=== PATIENT | female | born 1995 | race Caucasian/White ===

== ENCOUNTER → 2020-08-09 16:04 | Outpatient (CLI) | payer OTHER, SELFPAY ==
[2019-04-22 14:47] VITALS: BMI 26.1
[2020-08-15 16:56] LABS: HPV Reflexed? NOT INDICATED
== END ==
PROVIDERS: PCP Physician Assistant; Visit Provider Obstetrics & Gynecology
DX: Z12.4 Encounter for screening for malignant neoplasm of cervix (principal)
CPT/HCPCS: 88175; G0145

== ENCOUNTER → 2020-09-22 14:52 | Outpatient (CLI) | payer OTHER, SELFPAY ==
[2019-04-22 14:47] VITALS: BMI 26.1
[2020-09-22 16:06] LABS: Progesterone Level 13.42 ng/mL (See Comment)
[2020-09-22 16:13] LABS: Prolactin 14.5 ng/mL; Thyroid Stim Hormone (TSH) 0.64 uIU/mL (0.358-3.74)
== END ==
PROVIDERS: PCP Physician Assistant; Visit Provider Obstetrics & Gynecology
DX: N92.6 Irregular menstruation, unspecified (principal)
CPT/HCPCS: 36415; 84144; 84146; 84443

== ENCOUNTER 2021-06-21 10:56 | Outpatient (CLI) | payer OTHER, SELFPAY ==
[2021-06-21 11:48] LABS: hCG Titer Quant., Serum 11 mIU/mL (1-3)
== END 2021-06-21 23:59 | disposition home or self-care (01) ==
LOC: WOBLAB 10:59
PROVIDERS: PCP Physician Assistant; Visit Provider Obstetrics & Gynecology
DX: Z34.81 Encounter for supervision of other normal pregnancy, first trimester (principal); N91.2 Amenorrhea, unspecified
CPT/HCPCS: 36415; 84702

== ENCOUNTER 2021-06-25 10:57 | Outpatient (CLI) | payer OTHER, SELFPAY ==
[2021-06-25 13:20] LABS: hCG Titer Quant., Serum 5 mIU/mL (1-3)
== END 2021-06-25 23:59 | disposition home or self-care (01) ==
LOC: WOBLAB 10:58
PROVIDERS: PCP Physician Assistant; Visit Provider Obstetrics & Gynecology
DX: N91.2 Amenorrhea, unspecified (principal)
CPT/HCPCS: 36415; 84702

== ENCOUNTER → 2021-12-20 | Outpatient (CLI) | payer OTHER, SELFPAY ==
[2021-12-20 12:01] LABS: Absolute Lymphocyte Count 1.32 X10^3/uL (0.83-4.51); Absolute Neutrophil Count 3.2 X10^3/uL (2.0-7.7); Basophil# 0.02 X10^3/uL; Basophil% 0.4 % (0-1); Eosinophil# 0.05 X10^3/uL; Hematocrit 42.9 % (37-47); Hemoglobin 14.2 g/dL (12.0-15.0); Lymphocyte # 1.32 X10^3/ul (0.83-4.51); Lymphocyte % 26.1 % (19-41); Mean Corp Hgb Conc 33.1 g/dL (32-36); Mean Corpuscular Hgb 31.1 pg (27.0-32.0); Mean Corpuscular Volume 93.9 fL (81-99); Mean Platelet Vol. 10.8 fl (6.2-12.0); Monocyte# 0.48 X10^3/uL; Monocyte% 9.5 % (0-10); NRBC Flagged by Analyzer 0 % (0-5); Neutrophil # 3.17 X10^3/uL (2.7-7.7); Neutrophil % 62.6 % (47-70); Platelet Count 291 K/mm3 (150-450); RBC Distribution Width CV 11.7 % (11.6-14.6); RBC Distribution Width SD 39.8 fl (35.1-43.9); Red Blood Count 4.57 M/mm3 (4.2-5.4); White Blood Count 5.1 K/mm3 (4.4-11.0)
[2021-12-20 12:10] LABS: Anion Gap 3 (5-15); BUN 9 mg/dL (7-18); BUN/Creat Ratio 10.9 RATIO (10-20); Calcium,Total 9.4 mg/dL (8.5-10.1); Chloride 109 mmol/L (98-107); Creatinine, Serum 0.82 mg/dL (0.55-1.02); EST Glomerular Filtration Rate 89 mL/min (>60); Est Glom Filt Rate - Afr Amer 107 mL/min (>60); Estradiol 28.1 pg/mL; Follicle Stimulating Hormone 6.4 mIU/mL; Glucose 91 mg/dL (74-106); Potassium 3.8 mmol/L (3.5-5.1); Prolactin 12.3 ng/mL; Sodium Level 139 mmol/L (136-145)
[2021-12-20 12:24] LABS: Hemoglobin A1c 5.1 % (3.8-5.6)
[2021-12-27 09:25] LABS: Testosterone Free 3.2 pg/mL (0.0-4.2)
== END | disposition home or self-care (01) ==
LOC: WOBLAB 10:59
PROVIDERS: PCP Physician Assistant; Visit Provider Obstetrics & Gynecology
DX: N97.8 Female infertility of other origin (principal)
CPT/HCPCS: 36415; 80048; 82670; 83001; 83002; 83036; 84146; 84402; 85025

== ENCOUNTER → 2022-02-28 | Outpatient (CLI) | payer SELFPAY ==
[2022-02-28 13:07] LABS: Progesterone Level 2.26 ng/mL (See Comment)
== END | disposition home or self-care (01) ==
LOC: WOBLAB 11:44
PROVIDERS: PCP Physician Assistant; Visit Provider Obstetrics & Gynecology
DX: N97.8 Female infertility of other origin (principal); E28.2 Polycystic ovarian syndrome
CPT/HCPCS: 36415; 84144

== ENCOUNTER → 2022-04-04 | Outpatient (CLI) | payer SELFPAY ==
[2022-04-04 12:06] LABS: Progesterone Level 7.65 ng/mL (See Comment)
== END | disposition home or self-care (01) ==
PROVIDERS: PCP Physician Assistant; Visit Provider Obstetrics & Gynecology
DX: Z51.81 Encounter for therapeutic drug level monitoring (principal)
CPT/HCPCS: 36415; 84144

== ENCOUNTER → 2022-06-06 | Outpatient (CLI) | payer SELFPAY ==
[2022-06-06 13:11] LABS: Absolute Lymphocyte Count 1.29 X10^3/uL (0.83-4.51); Absolute Neutrophil Count 6.4 X10^3/uL (2.0-7.7); Basophil# 0.01 X10^3/uL; Basophil% 0.1 % (0-1); Eosinophil# 0.01 X10^3/uL; Eosinophils% 0.1 % (0-5); Lymphocyte # 1.29 X10^3/ul (0.83-4.51); Lymphocyte % 15.3 % (19-41); Mean Corp Hgb Conc 32.5 g/dL (32-36); Mean Corpuscular Volume 92.4 fL (81-99); Mean Platelet Vol. 11.2 fl (6.2-12.0); Monocyte# 0.68 X10^3/uL; NRBC Flagged by Analyzer 0 % (0-5); Neutrophil # 6.43 X10^3/uL (2.7-7.7); Neutrophil % 76.1 % (47-70); Platelet Count 291 K/mm3 (150-450); RBC Distribution Width CV 11.4 % (11.6-14.6); RBC Distribution Width SD 38.7 fl (35.1-43.9); Red Blood Count 4.33 M/mm3 (4.2-5.4); White Blood Count 8.5 K/mm3 (4.4-11.0)
[2022-06-06 15:10] LABS: HIV - WCH Non-Reactive (Nonreactive); Hepatitis B Surface Antigen Non-Reactive (Nonreactive); Hepatitis C Antibody Non-Reactive (Nonreactive); Rubella IgG Reactive (Nonreactive); Syphilis Antibodies Non-reactive
[2022-06-07 21:24] LABS: V-Zoster IgG (Immunity) 2265 index (Immune >165)
== END | disposition home or self-care (01) ==
PROVIDERS: PCP Physician Assistant; Visit Provider Obstetrics & Gynecology
DX: Z34.81 Encounter for supervision of other normal pregnancy, first trimester (principal)
CPT/HCPCS: 36415; 85025; 86703; 86762; 86780; 86787; 86803; 87086; 87340

== ENCOUNTER → 2022-07-11 | Outpatient (CLI) | payer SELFPAY ==
[2022-07-11 11:21] LABS: Glucose Challenge Gest 1H 50g 100 mg/dL (70-140)
== END | disposition home or self-care (01) ==
LOC: WOBLAB 10:28
PROVIDERS: PCP Physician Assistant; Visit Provider Obstetrics & Gynecology
DX: Z34.81 Encounter for supervision of other normal pregnancy, first trimester (principal)
CPT/HCPCS: 36415; 82950

== ENCOUNTER → 2022-11-07 | Outpatient (CLI) | payer SELFPAY ==
[2022-11-07 16:58] LABS: Absolute Lymphocyte Count 1.33 X10^3/uL (0.83-4.51); Absolute Neutrophil Count 8.9 X10^3/uL (2.0-7.7); Basophil# 0.02 X10^3/uL; Basophil% 0.2 % (0-1); Eosinophil# 0.04 X10^3/uL; Eosinophils% 0.4 % (0-5); Hematocrit 29.7 % (37-47); Hemoglobin 9.4 g/dL (12.0-15.0); Lymphocyte # 1.33 X10^3/ul (0.83-4.51); Lymphocyte % 11.8 % (19-41); Mean Corp Hgb Conc 31.6 g/dL (32-36); Mean Corpuscular Hgb 30.2 pg (27.0-32.0); Mean Corpuscular Volume 95.5 fL (81-99); Mean Platelet Vol. 11.6 fl (6.2-12.0); Monocyte# 0.79 X10^3/uL; NRBC Flagged by Analyzer 0 % (0-5); Neutrophil # 8.94 X10^3/uL (2.7-7.7); Neutrophil % 79.3 % (47-70); Platelet Count 254 K/mm3 (150-450); RBC Distribution Width CV 12.6 % (11.6-14.6); RBC Distribution Width SD 42.9 fl (35.1-43.9); Red Blood Count 3.11 M/mm3 (4.2-5.4); White Blood Count 11.3 K/mm3 (4.4-11.0)
[2022-11-07 17:13] LABS: Glucose Challenge Gest 1H 50g 115 mg/dL (70-140)
[2022-11-07 17:44] LABS: Syphilis Antibodies Non-reactive
== END | disposition home or self-care (01) ==
LOC: WOBLAB 13:22
PROVIDERS: PCP Physician Assistant; Visit Provider Obstetrics & Gynecology
DX: Z34.82 Encounter for supervision of other normal pregnancy, second trimester (principal); Z3A.00 Weeks of gestation of pregnancy not specified
CPT/HCPCS: 36415; 82950; 85025; 86780

== ENCOUNTER 2022-12-12 17:55 | Outpatient (CLI) | payer SELFPAY ==
[2022-12-12] VITALS (18 sets, daily range): BP systolic 122–142; BP diastolic 73–84; PULSE 87–115; TEMP 36.7–37.1; O2SAT 95–97; BMI 34.0
[2022-12-12] MEDS: 0.9% Saline Lock 10 ML Syringe IV (18:43)
--- NOTE | 2022-12-12 19:56 | PCM.HP.BLA ---
History and Physical Date of Admission: 12/12/22 Chief complaint: Preeclampsia without severe features History present illness: 27-year-old G2, P0 at 32 weeks and 5 days with SERGIO 02/01/2023 arrives from office with elevated blood pressures and elevated LFTs. Patient remains asymptomatic. Denies headache, vision change, chest pain, shortness of breath, nausea vomit, right upper quadrant pain. Patient states good movements. is complicated by Di Di twins, preeclampsia without severe features, BMI 34 Obstetric history: G1: SAB G2: Current Past medical history: None Medications: vitamin, aspirin Allergies: Latex Past surgical history: None Social history: Denies smoking, alcohol use, drug use Family history: Denies history DVT or PE Review of systems: Besides above pertinent positives a full review of systems was performed and found to be negative Physical exam: Vitals: Blood pressure 127/75 pulse 97 General: Normal-appearing no acute distress HEENT: Normocephalic/atraumatic no cervical adenopathy Cardiac/respiratory: No use of city assessor muscles, nonlabored breathing Abdomen: Soft, nontender, gravid. Negative right upper quadrant pain Extremities: No peripheral edema normal peripheral pulses. DTRs +2 in the lower extremities bilaterally. Negative clonus bilaterally Psych: Normal affect normal demeanor nonpressured speech BPP in office: 88 x 2 baby A cephalic baby B cephalic Assessment plan: 27-year-old at 32 weeks and 5 days seen in office with elevated blood pressure 140/80s, asymptomatic in office, office labs obtained and noted to have elevated LFTs ALT nearly double the upper limit of normal along with proteinuria. Based on these findings diagnosed with preeclampsia without severe features. Called patient with results and notified to go to labor and delivery for further evaluation. Called charge nurse to notify patient arrival and plan for blood pressure check and IV placement to call with blood pressures. Patient arrived notified by nursing initial elevated blood pressure 142/82 but subsequent pressures within normal limits. Given orders for nursing for every 15 minute blood pressure checks and to place IV saline locked. Patient seen and examined, patient remains asymptomatic and blood pressures remain within normal limits. Educated patient on findings with lab work and risk for preeclampsia with Di Di twins. Educated patient on diagnosis of preeclampsia without severe features and delivery timing and plan. Based on recent elevated blood pressures and elevated LFTs educated patient on giving Celestone now and reasons for Celestone including benefits for lung maturity, patient states understanding and wished to proceed. Discussed with patient monitoring overnight blood pressures and repeating labs in the morning discussed care plan if LFTs continue to elevate double the upper limit of normal. Patient and partner state understanding all questions answered. Will continue to monitor blood pressures and repeat HELLP labs in the morning. Discussed care plan with nursing
[2022-12-12] MEDS: Betamethasone/Betamethasone 30 MG/5 ML Vial 12 MG IM (20:40)
[2022-12-13] VITALS (9 sets, daily range): BP systolic 112–140; BP diastolic 65–78; PULSE 87–103; TEMP 37; O2SAT 97
--- NOTE | 2022-12-13 04:15 | PN.OBGYN_ITS ---
Subjective Subjective No overnight complaints. Denies headache, vision change, chest pain, shortness of breath, nausea vomit, right upper quadrant pain. Objective Data Objective Data Vital Signs: Vital Signs Temp Pulse BP Pulse Ox 98.1 F 97 134/76 H 96 12/12/22 23:55 12/13/22 03:02 12/13/22 03:02 12/12/22 23:55 Weight: 198 lb Body Mass Index (BMI) 34.0 Physical Exam Const alert, oriented x3, no apparent distress, average body habitus, healthy william earing and well nourished HEENT normocephalic and moist oral mucous membranes Eyes PERRL Neck full ROM Resp normal respiratory effort, no retractions and no use of accessory muscles GI GI Narrative: Soft, nontender, gravid. Negative right upper quadrant pain Extremity normal to inspection, full ROM and no clubbing, cyanosis or edema Neuro moves all extremities, no focal motor deficits and deep tendon reflexes 2+ bilaterally Motor Exam: clonus absent Psych mental status grossly normal, affect normal, speech normal and activity/motor behavior normal Assessment & Plan (1) : PLAN: Hospital day 1 after overnight stay. Currently with preeclampsia without severe features. Patient remains asymptomatic. Isolated elevated blood pressures otherwise blood pressure within normal limits. Patient educated on care plan for labs today. Pending lab results will adjust care plan. Celestone given yesterday evening for repeat dose today. For n.p.o. discussed with nursing.
[2022-12-13] MEDS: 0.9% Saline Lock 10 ML Syringe IV (06:16)
[2022-12-13 06:27] LABS: Absolute Lymphocyte Count 0.94 X10^3/uL (0.83-4.51); Absolute Neutrophil Count 9.7 X10^3/uL (2.0-7.7); Basophil# 0.02 X10^3/uL; Basophil% 0.2 % (0-1); Hematocrit 35.5 % (37-47); Hemoglobin 11.2 g/dL (12.0-15.0); Lymphocyte # 0.94 X10^3/ul (0.83-4.51); Lymphocyte % 8.4 % (19-41); Mean Corp Hgb Conc 31.5 g/dL (32-36); Mean Corpuscular Hgb 30.4 pg (27.0-32.0); Mean Corpuscular Volume 96.5 fL (81-99); Mean Platelet Vol. 12.1 fl (6.2-12.0); Monocyte# 0.35 X10^3/uL; Monocyte% 3.1 % (0-10); NRBC Flagged by Analyzer 0 % (0-5); Neutrophil # 9.72 X10^3/uL (2.7-7.7); Neutrophil % 87.4 % (47-70); Platelet Count 197 K/mm3 (150-450); RBC Distribution Width CV 14.6 % (11.6-14.6); RBC Distribution Width SD 51.4 fl (35.1-43.9); Red Blood Count 3.68 M/mm3 (4.2-5.4); White Blood Count 11.1 K/mm3 (4.4-11.0)
[2022-12-13 06:54] LABS: ALB/GLOB Ratio 0.7 RATIO (0.9-2.4); AST(SGOT) 41 U/L (15-37); Alanine Aminotransfer ALT/SGPT 97 U/L (13-56); Albumin, Serum 2.5 g/dL (3.2-5.0); Alkaline Phosphatase 174 U/L (45-117); Anion Gap 8 (5-15); BUN 9 mg/dL (7-18); BUN/Creat Ratio 13.1 RATIO (10-20); Calcium,Total 9.3 mg/dL (8.5-10.1); Chloride 111 mmol/L (98-107); Creatinine, Serum 0.69 mg/dL (0.55-1.02); EST Glomerular Filtration Rate 109 mL/min (>60); Est Glom Filt Rate - Afr Amer 132 mL/min (>60); Estimated Creatinine Clearance 105.76 ml/min; Globulin 3.6 g/dL (2.2-4.2); Glucose 109 mg/dL (74-106); LDH 163 U/L (84-246); Potassium 3.9 mmol/L (3.5-5.1); Protein, Total 6.1 g/dL (6.4-8.2); Sodium Level 139 mmol/L (136-145)
== END 2022-12-13 07:10 | disposition home or self-care (01) ==
LOC: WPOUT 17:57 → WP 17:57
PROVIDERS: PCP Physician Assistant; Referring Provider Obstetrics & Gynecology; Visit Provider Obstetrics & Gynecology
DX: O14.93 Unspecified pre-eclampsia, third trimester (principal); Z3A.32 32 weeks gestation of pregnancy; Z79.82 Long term (current) use of aspirin; O30.003 Twin pregnancy, unspecified number of placenta and unspecified number of amniotic sacs, third trimester
CPT/HCPCS: 36415; 59025; 59050; 80053; 83615; 85025; 96372; A4216; J0702

== ENCOUNTER → 2022-12-12 | Outpatient (CLI) | payer SELFPAY ==
[2022-12-12 15:18] LABS: Absolute Lymphocyte Count 1.32 X10^3/uL (0.83-4.51); Basophil# 0.03 X10^3/uL; Basophil% 0.2 % (0-1); Eosinophil# 0.01 X10^3/uL; Eosinophils% 0.1 % (0-5); Hematocrit 35.9 % (37-47); Hemoglobin 11.7 g/dL (12.0-15.0); Lymphocyte # 1.32 X10^3/ul (0.83-4.51); Lymphocyte % 10.9 % (19-41); Mean Corp Hgb Conc 32.6 g/dL (32-36); Mean Corpuscular Hgb 31.1 pg (27.0-32.0); Mean Corpuscular Volume 95.5 fL (81-99); Mean Platelet Vol. 11.9 fl (6.2-12.0); Monocyte# 0.75 X10^3/uL; Monocyte% 6.2 % (0-10); NRBC Flagged by Analyzer 0 % (0-5); Neutrophil # 9.97 X10^3/uL (2.7-7.7); Neutrophil % 82.1 % (47-70); Platelet Count 212 K/mm3 (150-450); RBC Distribution Width CV 14.6 % (11.6-14.6); RBC Distribution Width SD 50.8 fl (35.1-43.9); Red Blood Count 3.76 M/mm3 (4.2-5.4); White Blood Count 12.1 K/mm3 (4.4-11.0)
[2022-12-12 15:31] LABS: Protein, Urine (Random) 15.2 mg/dL (<11.9); Protein:Creat Ratio 412 mg/g CRE (0-200)
[2022-12-12 15:33] LABS: ALB/GLOB Ratio 0.7 RATIO (0.9-2.4); AST(SGOT) 44 U/L (15-37); Alanine Aminotransfer ALT/SGPT 102 U/L (13-56); Albumin, Serum 2.5 g/dL (3.2-5.0); Alkaline Phosphatase 183 U/L (45-117); Anion Gap 6 (5-15); BUN 7 mg/dL (7-18); BUN/Creat Ratio 8.5 RATIO (10-20); Calcium,Total 9.3 mg/dL (8.5-10.1); Chloride 107 mmol/L (98-107); Creatinine, Serum 0.82 mg/dL (0.55-1.02); EST Glomerular Filtration Rate 88 mL/min (>60); Est Glom Filt Rate - Afr Amer 107 mL/min (>60); Globulin 3.8 g/dL (2.2-4.2); Glucose 91 mg/dL (74-106); LDH 171 U/L (84-246); Potassium 3.6 mmol/L (3.5-5.1); Protein, Total 6.3 g/dL (6.4-8.2); Sodium Level 138 mmol/L (136-145)
== END | disposition home or self-care (01) ==
LOC: WOBLAB 14:28
PROVIDERS: PCP Physician Assistant; Visit Provider Obstetrics & Gynecology
DX: Z34.83 Encounter for supervision of other normal pregnancy, third trimester (principal); Z3A.00 Weeks of gestation of pregnancy not specified
CPT/HCPCS: 36415; 80053; 82570; 83615; 84156; 85025; 87086

== ENCOUNTER 2022-12-13 20:58 | Outpatient (CLI) | payer SELFPAY ==
[2022-12-13 21:15] VITALS: BMI 34.2
--- NOTE | 2022-12-13 21:15 | PCM.PN.BLA ---
Progress Note 27-year-old female with di-/Di twins presenting for Celestone injection. Celestone given. Discharge home with twice weekly visits in office.
[2022-12-13 21:18] VITALS: BP 129/76; PULSE 86; TEMP 36.9
[2022-12-13] MEDS: Betamethasone/Betamethasone 30 MG/5 ML Vial 12 MG IM (21:29)
== END 2022-12-13 21:35 | disposition home or self-care (01) ==
LOC: WPOUT 21:07 → WP 21:08
PROVIDERS: PCP Physician Assistant; Referring Provider Obstetrics & Gynecology; Visit Provider Obstetrics & Gynecology
DX: O30.009 Twin pregnancy, unspecified number of placenta and unspecified number of amniotic sacs, unspecified trimester (principal); Z3A.00 Weeks of gestation of pregnancy not specified
CPT/HCPCS: 96372; 99221; G0378; J0702

== ENCOUNTER → 2022-12-17 | Outpatient (CLI) | payer SELFPAY ==
[2022-12-17 13:21] LABS: Hematocrit 36.1 % (37-47); Hemoglobin 11.2 g/dL (12.0-15.0); Mean Corpuscular Hgb 30.3 pg (27.0-32.0); Mean Corpuscular Volume 97.6 fL (81-99); Mean Platelet Vol. 12.6 fl (6.2-12.0); Platelet Count 205 K/mm3 (150-450); RBC Distribution Width CV 14.6 % (11.6-14.6); RBC Distribution Width SD 52.3 fl (35.1-43.9); White Blood Count 12.1 K/mm3 (4.4-11.0)
[2022-12-17 13:38] LABS: ALB/GLOB Ratio 0.7 RATIO (0.9-2.4); AST(SGOT) 43 U/L (15-37); Alanine Aminotransfer ALT/SGPT 98 U/L (13-56); Albumin, Serum 2.5 g/dL (3.2-5.0); Alkaline Phosphatase 186 U/L (45-117); Anion Gap 7 (5-15); BUN 11 mg/dL (7-18); BUN/Creat Ratio 16.8 RATIO (10-20); Calcium,Total 8.8 mg/dL (8.5-10.1); Chloride 110 mmol/L (98-107); Creatinine, Serum 0.65 mg/dL (0.55-1.02); EST Glomerular Filtration Rate 115 mL/min (>60); Est Glom Filt Rate - Afr Amer 139 mL/min (>60); Globulin 3.6 g/dL (2.2-4.2); Glucose 97 mg/dL (74-106); LDH 195 U/L (84-246); Potassium 3.7 mmol/L (3.5-5.1); Protein, Total 6.1 g/dL (6.4-8.2); Sodium Level 138 mmol/L (136-145)
== END | disposition home or self-care (01) ==
LOC: WOBLAB 12:01
PROVIDERS: PCP Physician Assistant; Visit Provider Student in an Organized Health Care Education/Training Program
DX: O14.93 Unspecified pre-eclampsia, third trimester (principal); Z3A.00 Weeks of gestation of pregnancy not specified
CPT/HCPCS: 36415; 80053; 83615; 85027

== ENCOUNTER → 2022-12-24 | Outpatient (CLI) | payer SELFPAY ==
[2022-12-24 11:10] LABS: Hematocrit 37.5 % (37-47); Mean Corpuscular Hgb 31.1 pg (27.0-32.0); Mean Corpuscular Volume 97.2 fL (81-99); Mean Platelet Vol. 12.5 fl (6.2-12.0); Platelet Count 176 K/mm3 (150-450); RBC Distribution Width CV 15.4 % (11.6-14.6); RBC Distribution Width SD 54.3 fl (35.1-43.9); Red Blood Count 3.86 M/mm3 (4.2-5.4); White Blood Count 9.6 K/mm3 (4.4-11.0)
[2022-12-24 11:21] LABS: ALB/GLOB Ratio 0.7 RATIO (0.9-2.4); AST(SGOT) 35 U/L (15-37); Alanine Aminotransfer ALT/SGPT 79 U/L (13-56); Albumin, Serum 2.6 g/dL (3.2-5.0); Alkaline Phosphatase 204 U/L (45-117); Anion Gap 11 (5-15); BUN 9 mg/dL (7-18); Calcium,Total 9.2 mg/dL (8.5-10.1); Chloride 107 mmol/L (98-107); Creatinine, Serum 0.82 mg/dL (0.55-1.02); EST Glomerular Filtration Rate 89 mL/min (>60); Est Glom Filt Rate - Afr Amer 108 mL/min (>60); Globulin 3.8 g/dL (2.2-4.2); Glucose 75 mg/dL (74-106); LDH 161 U/L (84-246); Potassium 3.6 mmol/L (3.5-5.1); Protein, Total 6.4 g/dL (6.4-8.2); Sodium Level 140 mmol/L (136-145)
== END | disposition home or self-care (01) ==
LOC: WOBLAB 10:10
PROVIDERS: PCP Physician Assistant; Visit Provider Student in an Organized Health Care Education/Training Program
DX: O14.93 Unspecified pre-eclampsia, third trimester (principal); Z36.85 Encounter for antenatal screening for Streptococcus B; Z3A.00 Weeks of gestation of pregnancy not specified
CPT/HCPCS: 36415; 80053; 83615; 85027; 87081

== ENCOUNTER → 2023-01-07 | Outpatient (CLI) | payer SELFPAY ==
[2023-01-07 13:11] LABS: Hematocrit 37.9 % (37-47); Mean Corp Hgb Conc 31.7 g/dL (32-36); Mean Corpuscular Hgb 30.6 pg (27.0-32.0); Mean Corpuscular Volume 96.7 fL (81-99); Mean Platelet Vol. 12.6 fl (6.2-12.0); Platelet Count 173 K/mm3 (150-450); RBC Distribution Width CV 15.2 % (11.6-14.6); RBC Distribution Width SD 53.1 fl (35.1-43.9); Red Blood Count 3.92 M/mm3 (4.2-5.4); White Blood Count 6.9 K/mm3 (4.4-11.0)
[2023-01-07 13:39] LABS: ALB/GLOB Ratio 0.6 RATIO (0.9-2.4); AST(SGOT) 24 U/L (15-37); Alanine Aminotransfer ALT/SGPT 30 U/L (13-56); Albumin, Serum 2.5 g/dL (3.2-5.0); Alkaline Phosphatase 215 U/L (45-117); Anion Gap 6 (5-15); BUN 7 mg/dL (7-18); BUN/Creat Ratio 8.1 RATIO (10-20); Calcium,Total 9.2 mg/dL (8.5-10.1); Chloride 109 mmol/L (98-107); Creatinine, Serum 0.86 mg/dL (0.55-1.02); EST Glomerular Filtration Rate 84 mL/min (>60); Est Glom Filt Rate - Afr Amer 101 mL/min (>60); Globulin 3.9 g/dL (2.2-4.2); Glucose 76 mg/dL (74-106); LDH 166 U/L (84-246); Potassium 4.2 mmol/L (3.5-5.1); Protein, Total 6.4 g/dL (6.4-8.2); Sodium Level 138 mmol/L (136-145)
== END | disposition home or self-care (01) ==
PROVIDERS: PCP Physician Assistant; Referring Provider Obstetrics & Gynecology; Visit Provider Obstetrics & Gynecology
DX: O14.90 Unspecified pre-eclampsia, unspecified trimester (principal); Z3A.00 Weeks of gestation of pregnancy not specified
CPT/HCPCS: 36415; 80053; 83615; 85027

== ENCOUNTER 2023-01-13 09:25 | Inpatient (IN) | payer SELFPAY ==
[2023-01-13] VITALS (18 sets, daily range): BP systolic 110–145; BP diastolic 65–95; PULSE 61–86; RESP 12–18; TEMP 35.8–37; O2SAT 93–99; BMI 35.2
[2023-01-13] MEDS: Lactated Ringers 1,000 ML 999 ML IV (10:05)
[2023-01-13 10:34] LABS: Absolute Lymphocyte Count 1.22 X10^3/uL (0.83-4.51); Absolute Neutrophil Count 6.4 X10^3/uL (2.0-7.7); Basophil# 0.01 X10^3/uL; Basophil% 0.1 % (0-1); Eosinophil# 0.04 X10^3/uL; Eosinophils% 0.5 % (0-5); Hematocrit 37.5 % (37-47); Hemoglobin 12.3 g/dL (12.0-15.0); Lymphocyte # 1.22 X10^3/ul (0.83-4.51); Lymphocyte % 14.6 % (19-41); Mean Corp Hgb Conc 32.8 g/dL (32-36); Mean Corpuscular Hgb 31.4 pg (27.0-32.0); Mean Corpuscular Volume 95.7 fL (81-99); Mean Platelet Vol. 12.4 fl (6.2-12.0); Monocyte% 7.2 % (0-10); NRBC Flagged by Analyzer 0 % (0-5); Neutrophil # 6.44 X10^3/uL (2.7-7.7); Neutrophil % 76.9 % (47-70); Platelet Count 153 K/mm3 (150-450); RBC Distribution Width CV 15.1 % (11.6-14.6); RBC Distribution Width SD 53.4 fl (35.1-43.9); Red Blood Count 3.92 M/mm3 (4.2-5.4); White Blood Count 8.4 K/mm3 (4.4-11.0)
[2023-01-13] MEDS: Acetaminophen 500 MG Tablet 1000 MG PO ×3 (10:47→22:30)
[2023-01-13] MEDS: Lactated Ringers 1,000 ML 150 ML IV (11:18)
--- NOTE | 2023-01-13 11:18 | HP.PCM.OB_ITS ---
History and Physical Date of Admission: 01/13/23 Chief complaint: Primary section History present illness: 27-year-old G2, P0 at 37 weeks and 2 days with SERGIO 02/01/2023 arrives for primary section with di/di twins. Denies headache, vision change, chest pain, shortness of breath, nausea vomit, right upper quadrant pain. Patient states good movement. is complicated by di/di twins, BMI 35, preeclampsia without severe features on labetalol 200 mg twice daily Obstetric history: G1: SAB G2: Current Past medical history: Preeclampsia without severe features Medications: Labetalol 2 mg twice daily, aspirin 81 mg daily, vitamin Allergies: Latex Past surgical history: None Social history: Denies smoking, alcohol, drug use Family history: Denies history DVT or PE Review of systems: Besides above pertinent positives a full review of systems was performed and found to be negative Physical exam: Vitals: Blood pressure 132/81 pulse 86 respiratory rate 16 temperature 98.6 ?F SPO2 90% on room air General: Normal-appearing no acute distress HEENT: Normocephalic/atraumatic no cervical lymphadenopathy Cardiac/respiratory: No use accessory muscles, nonlabored breathing Abdomen: Soft, nontender, gravid Extremities: No peripheral edema normal peripheral pulses Psych: Normal affect, demeanor nonpressured speech Labs: White blood cell count 8.4 hemoglobin 12.3 hematocrit 37.5% platelets 153 Assessment plan: 27-year-old G2, P0 at 37 weeks and 2 days arrives for primary section with di/di twins. Educated patient on risks of primary section include but are not limited to visceral or vascular injury, prolonged hospitalization, blood loss need for transfusion, reoperation. Stressed that sections have an increased risk for all risk factors including but not limited to infection and blood loss and need for transfusion. Patient state understanding and wished to proceed. All questions were answered and consent was signed. 2 g Ancef preoperatively. Discussed case with printed circuit boards router and reviewed risk factors, printed circuit boards router to be at delivery
[2023-01-13 11:40] LABS: Syphilis Antibodies Non-reactive
[2023-01-13] MEDS: Cefazolin 2 GM in 0.9% Normal Saline (100mL Bag) 100 ML IV (12:09)
--- NOTE | 2023-01-13 12:53 | EX.PCM.OBRPT ---
Details Operative Information Date of Procedure: 01/13/23 Pre-Operative Diagnosis: Term, diamniotic dichorionic twins, preeclampsia without severe features Post-Operative Diagnosis: Term, diamniotic dichorionic twins, preeclampsia without severe features earth science technical officer #1: Zaki Alcantara Findings Description of Procedure: Procedure: Primary low transverse section Via Pfannenstiel incision Surgeon: Triston Prajapati MD Anesthesia: Spinal EBL: 700 cc Urine output: 300 cc IV fluids: 700 cc Complications: None Specimen: None Findings: Baby A male in vertex position Apgars 7 and 9, baby B female infant in vertex position Apgars 9/9. Baby B delivered En Caul. Normal uterus, tubes, and ovaries Consent: Patient arrived for scheduled primary low-transverse section via Pfannenstiel incision elective with di/di twins and preeclampsia without severe features. Patient understands risk of the procedure include but are not limited to visceral or vascular injury, prolonged hospitalization, blood loss need for transfusion, reoperation. Patient state understanding and wished to proceed. All questions were answered and consent was signed. Procedure: Patient was brought back to the OR where spinal anesthesia was found to be adequate. 2 g of Ancef were given for infection prophylaxis. Patient was prepared and draped in a supine position with leftward tilt. A Pfannenstiel incision was made at the skin with a scalpel. The incision was carried down to the fascia with scalpel. The fascia was excised and extended laterally. Rectus muscle was dissected at the midline down to the level of the pubic symphysis. Preperitoneal fat tissue was noted and peritoneum was entered bluntly. Peritoneum was extended superiorly and inferiorly with good visualization of bladder. Bladder blade was inserted and vesicouterine peritoneum was identified. Low transverse hysterotomy incision was made. Hand was placed in the incision and gentle fundal pressure was applied once the head of baby A was brought into the incision and the bladder blade was removed, head and shoulders were delivered with ease, cord was clamped and cut. Baby A was handed off to nursing. Baby B was delivered En caul in vertex position head and shoulders delivered with ease. Allis clamp was used for rupture membranes. Cord was clamped and cut. Baby B was handed off to nursing. Both placentas were delivered via cord traction and fundal massage. IV oxytocin was initiated to facilitate uterine contractions. Uterus was exteriorized and wiped out with dry laparotomy sponge in order to remove remaining placental membranes. Uterus was closed in a continuous running fashion. [id number] sutures were used for hemostasis and a Bovie was used for hemostasis. Good hemostasis was noted. Uterus was placed back in the abdominal cavity and the incision was reinspected, good hemostasis was noted. Lc was placed over the hysterotomy incision. Good hemostasis was noted. Fascia was closed in continuous running fashion with PDS suture. Subcutaneous irrigation was performed and hemostasis was achieved with the Bovie. Good hemostasis was noted. Skin was closed in subcuticular fashion. Good hemostasis was noted. All counts were correct x2. Patient tolerated procedure well and was brought to recovery in a stable condition.
[2023-01-13] MEDS: Oxytocin 15 Units/NS 250ml 15 UNITS/250 ML IV.SOLN 83 UNITS IV (13:10)
[2023-01-13] MEDS: Ketorolac 30 MG/ML Syringe IV ×2 (13:33→19:03)
[2023-01-13] MEDS: proCHLORPERazine 10 MG/2 ML Vial IV (14:03)
[2023-01-13] MEDS: Lactated Ringers 1,000 ML 100 ML IV (16:33)
[2023-01-13] MEDS: Ondansetron 4 MG/2 ML Vial IV (22:12)
[2023-01-13] MEDS: Labetalol 200 MG Tablet PO (22:30)
[2023-01-14 01:00] VITALS: BP 112/69; PULSE 76; RESP 16; TEMP 35.8; O2SAT 93
[2023-01-14] MEDS: Enoxaparin 40 MG/0.4 ML Syringe SC (01:12)
[2023-01-14] MEDS: Ketorolac 30 MG/ML Syringe IV ×2 (01:48→07:48)
[2023-01-14] MEDS: Lactated Ringers 1,000 ML 999 ML IV (01:51)
[2023-01-14] MEDS: Lactated Ringers 1,000 ML 100 ML IV (03:03)
[2023-01-14] MEDS: Acetaminophen 500 MG Tablet 1000 MG PO ×3 (04:44→17:14)
[2023-01-14 04:46] VITALS: BP 112/68; PULSE 64; RESP 16; TEMP 36.4; O2SAT 97
[2023-01-14 05:06] LABS: Hematocrit 31.5 % (37-47); Hemoglobin 9.9 g/dL (12.0-15.0); Mean Corp Hgb Conc 31.4 g/dL (32-36); Mean Corpuscular Hgb 30.6 pg (27.0-32.0); Mean Corpuscular Volume 97.2 fL (81-99); Mean Platelet Vol. 12.4 fl (6.2-12.0); Platelet Count 139 K/mm3 (150-450); RBC Distribution Width CV 14.9 % (11.6-14.6); RBC Distribution Width SD 53.1 fl (35.1-43.9); Red Blood Count 3.24 M/mm3 (4.2-5.4); White Blood Count 9.3 K/mm3 (4.4-11.0)
[2023-01-14 05:31] LABS: ALB/GLOB Ratio 0.7 RATIO (0.9-2.4); AST(SGOT) 26 U/L (15-37); Alanine Aminotransfer ALT/SGPT 20 U/L (13-56); Alkaline Phosphatase 154 U/L (45-117); Anion Gap 5 (5-15); BUN 9 mg/dL (7-18); Calcium,Total 8.3 mg/dL (8.5-10.1); Chloride 110 mmol/L (98-107); Creatinine, Serum 0.75 mg/dL (0.55-1.02); EST Glomerular Filtration Rate 98 mL/min (>60); Est Glom Filt Rate - Afr Amer 119 mL/min (>60); Glucose 70 mg/dL (74-106); LDH 221 U/L (84-246); Potassium 4.2 mmol/L (3.5-5.1); Sodium Level 139 mmol/L (136-145)
--- NOTE | 2023-01-14 06:41 | DCINST_ITS ---
Discharge Instructions Diet Discharge Diet: No restrictions Activity Discharge Activity: Return to Normal Activity, May Drive, May Shower and - (No tub baths for 2 weeks) May resume sexual activity in: 6-8 weeks Lifting Restrictions: No lifting over 25 pounds for 2 to 3 weeks Dressing / Incision Call your doctor if your incision/area has: Continuous Slow Oozing and Foul Smelling Discharge Call your doctor if you observe: Fever of 101 or Higher, Shortness of breath and Chest pain Follow Up Care Please Follow Up With: Triston Prajapati MD When: 1 week postop visit Test Results: Test results from this visit will be discussed in further detail at your follow- up appointment, if applicable. Discharge Plan Admission Admit Date/Time: 01/13/23 09:25 Primary Reason for Your Visit: Primary section Attending Provider: Triston Prajapati Primary Care Provider: Emilia Guy Instructions Additional Instructions / Restrictions: Regular diet. Okay to shower. No tub baths for 2 weeks. No intercourse for 6 to 8 weeks. No lifting over 25 pounds for 2 to 3 weeks. Call if fever, chills, chest pain, shortness of breath. Follow-up 1 weeks postoperatively Discharge Orders/Prescriptions Prescriptions: New oxycodone 5 mg tablet 5 mg PO Q6H PRN (Reason: pain (scale score 7-10)) 4 Days Qty: 16 0RF labetalol 200 mg tablet 200 mg PO BID Qty: 60 1RF Continued folic acid 400 mcg tablet 400 mcg PO DAILY [id number] 1 mg tablet 1 tab PO DAILY aspirin 81 mg capsule 81 mg PO DAILY ferrous sulfate [iron] 325 mg (65 mg iron) tablet 325 mg PO DAILY Discontinued labetalol 200 mg tablet 200 mg PO BID Patient Comments: TAKE 1 TABLET BY MOUTH TWICE DAILY Referrals / Follow Up: Emilia Guy PA [Primary Care Provider] - Disposition Disposition (needs filled in before D/C Order can be placed): Home, Self Care
--- NOTE | 2023-01-14 06:42 | PN.OBGYN_ITS ---
Subjective Subjective No overnight complaints. Denies headache, vision change, chest pain, shortness of breath, nausea vomit, right upper quadrant pain. Objective Data Objective Data Vital Signs: Vital Signs Temp Pulse Resp BP Pulse Ox O2 Del Method 97.6 F L 64 16 112/68 97 Room Air 01/14/23 04:46 01/14/23 04:46 01/14/23 04:46 01/14/23 04:46 01/14/23 04:46 01/14/23 04:46 Oxygen Delivery Method Room Air Weight: 205 lb 4 oz Body Mass Index (BMI) 35.2 Intake & Output: Intake and Output for Last 24 Hours 01/12/23 01/13/23 01/14/23 23:59 23:59 23:59 Intake Total 1905 / 1905 1931.67 / 1931.67 Output Total 2400 / 2400 90 / 90 Balance -495 / -495 1841.67 / 1841.67 Lab / Micro Data 01/14/23 05:00 01/14/23 05:00 Labs: Laboratory Results - last 24 hr 01/13/23 10:10: WBC 8.4, RBC 3.92 L, Hgb 12.3, Hct 37.5, MCV 95.7, MCH 31.4, MCHC 32.8, RDW Std Deviation 53.4 H, RDW Coeff of Héctor 15.1 H, Plt Count 153, MPV 12.4 H, Immature Gran % (Auto) 0.700, Neut % (Auto) 76.9 H, Lymph % (Auto) 14.6 L, Craig % (Auto) 7.2, Eos % (Auto) 0.5, Baso % (Auto) 0.1, Absolute Neuts (auto) 6.4, Absolute Lymphs (auto) 1.22, Nucleated RBC % 0, Syphilis Total Ab Non- reactive, Blood Type O POSITIVE, Antibody Screen NEGATIVE 01/14/23 05:00: WBC 9.3, RBC 3.24 L, Hgb 9.9 L, Hct 31.5 L, MCV 97.2, MCH 30.6, MCHC 31.4 L, RDW Std Deviation 53.1 H, RDW Coeff of Héctor 14.9 H, Plt Count 139 L, MPV 12.4 H, Sodium 139, Potassium 4.2, Chloride 110 H, Carbon Dioxide 24.0, Anion Gap 5, BUN 9, Creatinine 0.75, Estim Creat Clear Calc 97.30, Est GFR (MDRD) Af Amer 119, Est GFR (MDRD) Non-Af 98, BUN/Creatinine Ratio 12.0, Glucose 70 L, Calcium 8.3 L, Total Bilirubin 0.30, AST 26, ALT 20, Alkaline Phosphatase 154 H, Lactate Dehydrogenase 221, Total Protein 5.0 L, Albumin 2.0 L, Globulin 3.0, Albumin/Globulin Ratio 0.7 L Physical Exam Const alert, oriented x3, no apparent distress, average body habitus, healthy appear ing and well nourished HEENT normocephalic and moist oral mucous membranes Eyes PERRL Neck full ROM Resp normal respiratory effort, no retractions and no use of accessory muscles GI GI Narrative: Soft, nontender, bandage clean dry and intact Extremity normal to inspection and full ROM Neuro moves all extremities and no focal motor deficits Psych mental status grossly normal, affect normal, speech normal and activity/motor behavior normal Assessment & Plan (1) delivery delivered: PLAN: Postop day 1 status post elective primary section with di/di twins. Formula feeding. Pain well controlled. Preeclampsia without severe features on labetalol 200 mg twice daily restarted yesterday. Blood pressures well controlled, patient asymptomatic, labs stable. Okay to discharge home today if okay with resources representative
[2023-01-14] MEDS: 0.9% Saline Lock 10 ML Syringe IV (07:49)
[2023-01-14 08:00] VITALS: BP 112/72; PULSE 68; RESP 16; TEMP 36.3; O2SAT 95
[2023-01-14] MEDS: Senna/Docusate Sodium 1 Tablet PO (10:58)
[2023-01-14] MEDS: Labetalol 200 MG Tablet PO (10:58)
[2023-01-14 14:00] VITALS: BP 115/76; PULSE 77; RESP 16; TEMP 36.1; O2SAT 96
[2023-01-14] MEDS: Ibuprofen 600 MG Tablet PO (14:07)
--- NOTE | 2023-01-14 15:39 | NURSING ---
student charting reviewed and agreed with. Chanda LEROY. instructor
[2023-01-14 18:53] VITALS: BP 130/79; PULSE 77; RESP 16; TEMP 36.3; O2SAT 99
== END 2023-01-14 19:25 | disposition home or self-care (01) | DRG 788 ==
PROVIDERS: Admitting Provider Obstetrics & Gynecology; PCP Physician Assistant; Visit Provider Obstetrics & Gynecology
PROC: 10D00Z1 Extraction of Products of Conception, Low, Open Approach (ICD-10-PCS; CPT 59514; principal; 2023-01-13 11:45)
DX: O30.043 Twin pregnancy, dichorionic/diamniotic, third trimester (principal); O14.94 Unspecified pre-eclampsia, complicating childbirth; Z37.2 Twins, both liveborn; Z3A.37 37 weeks gestation of pregnancy; Z79.82 Long term (current) use of aspirin
CPT/HCPCS: 59050; 80053; 83615; 85025; 85027; 86780; 86850; 86900; 86901; 99221; J7120; A4216; G0378; J2405

== ENCOUNTER → 2023-01-23 | Outpatient (CLI) | payer SELFPAY ==
[2023-01-23 13:11] LABS: Hematocrit 41.5 % (37-47); Hemoglobin 12.9 g/dL (12.0-15.0); Mean Corp Hgb Conc 31.1 g/dL (32-36); Mean Corpuscular Hgb 30.1 pg (27.0-32.0); Platelet Count 380 K/mm3 (150-450); RBC Distribution Width CV 14.1 % (11.6-14.6); RBC Distribution Width SD 50.4 fl (35.1-43.9); Red Blood Count 4.28 M/mm3 (4.2-5.4); White Blood Count 7.1 K/mm3 (4.4-11.0)
[2023-01-23 13:40] LABS: ALB/GLOB Ratio 0.9 RATIO (0.9-2.4); AST(SGOT) 23 U/L (15-37); Alanine Aminotransfer ALT/SGPT 41 U/L (13-56); Albumin, Serum 3.2 g/dL (3.2-5.0); Alkaline Phosphatase 162 U/L (45-117); Anion Gap 2 (5-15); BUN 13 mg/dL (7-18); BUN/Creat Ratio 14.2 RATIO (10-20); Calcium,Total 9.5 mg/dL (8.5-10.1); Chloride 110 mmol/L (98-107); Creatinine, Serum 0.91 mg/dL (0.55-1.02); EST Glomerular Filtration Rate 78 mL/min (>60); Est Glom Filt Rate - Afr Amer 95 mL/min (>60); Globulin 3.7 g/dL (2.2-4.2); Glucose 79 mg/dL (74-106); LDH 229 U/L (84-246); Potassium 4.1 mmol/L (3.5-5.1); Protein, Total 6.9 g/dL (6.4-8.2); Sodium Level 141 mmol/L (136-145)
== END | disposition home or self-care (01) ==
LOC: LAB 12:14
PROVIDERS: PCP Physician Assistant; Referring Provider Obstetrics & Gynecology; Visit Provider Obstetrics & Gynecology
DX: O14.90 Unspecified pre-eclampsia, unspecified trimester (principal); Z3A.00 Weeks of gestation of pregnancy not specified
CPT/HCPCS: 36415; 80053; 83615; 85027

== ENCOUNTER 2023-02-04 17:56 | Inpatient (IN) | payer OTHER, SELFPAY ==
[2023-02-04 17:57] VITALS: BP 128/77; PULSE 74; RESP 18; TEMP 36; O2SAT 99
--- NOTE | 2023-02-04 18:21 | US_ITS ---
STUDY: ABDOMINAL ULTRASOUND - RIGHT UPPER QUADRANT REASON FOR VISIT: Female, 27 years old PAIN-RUQ TECHNIQUE: Ultrasound evaluation of the right upper quadrant was performed with real-time and static sommers-scale imaging. TECHNICAL QUALITY: Adequate. COMPARISON: None. FINDINGS: Liver: The liver measures 16 cm. There is normal echogenicity of the liver. The bile ducts are within normal limits. There is hepatic color flow. The direction of portal flow is hepatopetal. There is no demonstrated mass lesion. Gallbladder: Normal distended gallbladder. The gallbladder wall measures 3 mm. There is a negative sonographic Lo''s sign. There is no pericholecystic fluid. There are multiple echogenic structures within the gallbladder, consistent with multiple gallstones. Common Bile Duct (C.B.D.): The common bile duct measures 7 mm. Pancreas: Normal size of the head, body and tail of the pancreas. There is normal echogenicity of the pancreas. There is no demonstrated pancreatic mass or cyst. Right Kidney: Normal size of the right kidney. The right kidney measures cm. Normal renal cortex. The right cortex measures cm. There is no demonstrated renal mass or cyst. There is no right hydronephrosis. US/Gallbladder IMPRESSION: Cholelithiasis. Possible distal common bile duct obstruction. Recommend HIDA scan and/or MRCP. Electronically Signed: Jaden Bowen MD at 19:34 EDT ,
[2023-02-04 18:29] LABS: Absolute Lymphocyte Count 1.74 X10^3/uL (0.83-4.51); Absolute Neutrophil Count 3.5 X10^3/uL (2.0-7.7); Basophil# 0.02 X10^3/uL; Basophil% 0.3 % (0-1); Eosinophil# 0.16 X10^3/uL; Eosinophils% 2.7 % (0-5); Hematocrit 42.1 % (37-47); Hemoglobin 13.5 g/dL (12.0-15.0); Lymphocyte # 1.74 X10^3/ul (0.83-4.51); Lymphocyte % 29.3 % (19-41); Mean Corp Hgb Conc 32.1 g/dL (32-36); Mean Corpuscular Hgb 30.2 pg (27.0-32.0); Mean Corpuscular Volume 94.2 fL (81-99); Mean Platelet Vol. 10.9 fl (6.2-12.0); Monocyte# 0.48 X10^3/uL; Monocyte% 8.1 % (0-10); NRBC Flagged by Analyzer 0 % (0-5); Neutrophil # 3.52 X10^3/uL (2.7-7.7); Neutrophil % 59.3 % (47-70); Platelet Count 291 K/mm3 (150-450); RBC Distribution Width CV 13.2 % (11.6-14.6); RBC Distribution Width SD 45.8 fl (35.1-43.9); Red Blood Count 4.47 M/mm3 (4.2-5.4); White Blood Count 5.9 K/mm3 (4.4-11.0)
[2023-02-04] MEDS: Ketorolac 30 MG/ML Syringe 15 MG IV (18:34)
[2023-02-04 18:35] VITALS: BMI 27.8
--- NOTE | 2023-02-04 18:35 | EDS_ITS ---
HPI <GALE Avendaño - Last Filed: 02/04/23 20:58> History of Present Illness Chief Complaint: Abd Pain Narrative Narrative: Patient presenting today due to abdominal pain that she has had intermittently since Friday. She reports that it is epigastric in nature and radiates into her back. She went to [facility] where they did a right upper quadrant ultrasound and blood work and found that she has an obstructing gallstone. They referred her to a GI doctor to have an ERCP performed. They gave her return instructions that included worsening pain. Today, she was eating lunch that consisted of broccoli cheddar soup and her pain came on again after eating, prompting her to come in. She denies any fevers, nausea, or vomiting. PFSH <GALE Avendaño - Last Filed: 02/04/23 20:58> [facility] Medical History (Updated 02/04/23 @ 21:[address] Radha Irizarry MD) Pre-eclampsia Home Medications labetalol 200 mg tablet 200 mg PO BID #60 tabs 01/14/23 [Rx Last Taken Unknown] Allergy/AdvReac Type Severity Reaction Status Date / Time latex Allergy Mild Rash Verified 02/04/23 17:57 Family History (Updated 02/04/23 @ 21:[address] Radha Irizarry MD) Unknown No problems noted. Mother Diabetes Hypertension Aunt Thyroid disorder Grandmother CAD (coronary artery disease) Grandfather CAD (coronary artery disease) Surgical History (Updated 02/04/23 @ 21:[address] Radha Irizarry MD) S/P section Social History household members: significant other housing: house number of children: 2 current occupational status: employed current occupation: works in accounting office history of recent travel: No sexually active: Yes other: lives with fiance Smoking Status: Never smoker alcohol intake: never substance use type: does not use what type of physical activity do you participate in: none seatbelt use: always do you feel safe at home: Yes ROS <GALE Avendaño - Last Filed: 02/04/23 20:58> ROS ED Constitutional Constitutional ED: Denies chills or fever(s) Cardiovascular Cardiovascular: Denies chest pain Respiratory/Chest Respiratory/Chest: Denies cough or dyspnea Gastrointestinal Gastrointestinal: Reports abdominal pain; Denies nausea or vomiting Genitourinary Genitourinary ED: Denies dysuria, hematuria or urinary frequency Musculoskeletal Musculoskeletal: Denies arthralgias or myalgias Integumentary Denies rash Neurologic Neurologic: Denies weakness EXAM <GALE Avendaño - Last Filed: 02/04/23 20:58> Physical Exam Const Vital Signs: 02/04/23 17:57 02/04/23 20:26 Temperature 96.8 F L Temperature Source Temporal Pulse Rate 74 63 Respiratory Rate 18 16 Blood Pressure 128/77 H 137/84 H Blood Pressure Mean 94 101 Pulse Ox 99 100 Oxygen Delivery Method Room Air Room Air Positive well nourished, well developed and no apparent distress General Appearance ED: well developed HEENT Reports normocephalic and head/scalp atraumatic Mouth ED: Yes moist mucous membranes normal Eyes PERRL and EOMs intact bilaterally Neck full ROM and supple Chest Wall inspection of chest normal Resp normal respiratory effort and clear to auscultation bilaterally Cardio regular rate and regular rhythm GI soft to palpation, non-distended and no masses GI Narrative: Epigastric tenderness to palpation, right upper quadrant tenderness to palpation, negative Lo sign, no rigidity or guarding, no peritoneal signs Healing scar without any surrounding erythema, edema, or dehiscence Back/Spine normal ROM and normal to inspection Extremity normal to inspection and full ROM Neuro oriented x3, CN's II-XII intact bilaterally, moves all extremities, no focal motor deficits and no sensory deficits noted Sensorium / Orientation: awake and alert Psych mental status grossly normal and thought process normal Skin no rashes or lesions noted and no wounds <Dr. Jb Lopez MD - Last Filed: 02/04/23 23:51> Physical Exam Const Vital Signs: 02/04/23 17:57 02/04/23 20:26 Temperature 96.8 F L Temperature Source Temporal Pulse Rate 74 63 Respiratory Rate 18 16 Blood Pressure 128/77 H 137/84 H Blood Pressure Mean 94 101 Pulse Ox 99 100 Oxygen Delivery Method Room Air Room Air MDM <GALE Avendaño - Last Filed: 02/04/23 20:58> [facility] MDM Narrative Medical decision making narrative: Patient presenting due to epigastric and right upper quadrant abdominal pain joy t she has had intermittently since Friday, and is actually more epigastric. She has negative Lo sign and abdomen is pretty unremarkable on exam. When seen at [facility], they performed a right upper quadrant ultrasound that reads the following: Cholelithiasis and dilated common bile duct. Finding consistent for obstruction. No findings of cholecystitis. Gallbladder wall measures 0.2 cm, common bile duct measures 1.0 cm. No gallbladder wall thickening or pericholecystic fluid. She was told that her liver enzymes were normal. Labs will be repeated as well as a right upper quadrant ultrasound. She was given Toradol for pain. Liver enzymes are now a little elevated. Repeat ultrasound shows cholelithiasis and common bile duct obstruction, no cholecystitis. I did speak with Dr. Teresa who recommends that she have an MRCP, he can do this in the morning. I will speak with the hospitalist and general surgery. She reports improved symptoms after the Toradol. Lab Data Attestation: I reviewed the patient's lab results. Lab results narrative: AST 42, ALT 71, alkaline phosphatase 213 Labs: Laboratory Results - last 24 hr 02/04/23 02/04/23 18:10 19:40 WBC 5.9 RBC 4.47 Hgb 13.5 Hct 42.1 MCV 94.2 MCH 30.2 MCHC 32.1 RDW Std Deviation 45.8 H RDW Coeff of Héctor 13.2 Plt Count 291 MPV 10.9 Immature Gran % (Auto) 0.300 Neut % (Auto) 59.3 Lymph % (Auto) 29.3 [place] % (Auto) 8.1 Eos % (Auto) 2.7 Baso % (Auto) 0.3 Absolute Neuts (auto) 3.5 Absolute Lymphs (auto) 1.74 Nucleated RBC % 0 Sodium 141 Potassium 3.5 Chloride 110 H Carbon Dioxide 28.0 Anion Gap 3 L BUN 7 Creatinine 0.85 Estim Creat Clear Calc 85.85 Est GFR (MDRD) Af Amer 103 Est GFR (MDRD) Non-Af 85 BUN/Creatinine Ratio 8.3 L Glucose 92 Calcium 9.1 Total Bilirubin 0.50 AST 42 H ALT 71 H Alkaline Phosphatase 213 H Total Protein 6.9 Albumin 3.7 Globulin 3.2 Albumin/Globulin Ratio 1.2 Lipase 29 Urine Color Yellow Urine Clarity Clear Urine pH 6.5 Ur Specific Leroy 1.010 Urine Protein Negative Urine Glucose (UA) Normal Urine Ketones Negative Urine Occult Blood 250 H Urine Nitrite Negative Urine Bilirubin Negative Urine Urobilinogen Normal Ur Leukocyte Esterase 500 H Urine RBC 0 SEEN Urine WBC 0-5 SEEN Ur Squamous Epith Cells 0-5 SEEN Ur Renal Epithelial Cell 0-5 SEEN Urine Bacteria 0 SEEN Urine Mucus 0 SEEN Urine Test Negative Radiography Diagnostic Testing: Clinical Impression(s) from Imaging Studies Gallbladder Ultrasound 02/04/23 18:21 IMPRESSION: Cholelithiasis. Possible distal common bile duct obstruction. Recommend HIDA scan and/or MRCP. Electronically Signed: Jaden Bowen MD at 19:34 EDT Reading Location ID and State: [facility] / [place] Tel , Service support , <Dr. Jb Lopez MD - Last Filed: 02/04/23 23:51> [facility] Lab Data Labs: Laboratory Results - last 24 hr 02/04/23 02/04/23 18:10 19:40 WBC 5.9 RBC 4.47 Hgb 13.5 Hct 42.1 MCV 94.2 MCH 30.2 MCHC 32.1 RDW Std Deviation 45.8 H RDW Coeff of Héctor 13.2 Plt Count 291 MPV 10.9 Immature Gran % (Auto) 0.300 Neut % (Auto) 59.3 Lymph % (Auto) 29.3 [place] % (Auto) 8.1 Eos % (Auto) 2.7 Baso % (Auto) 0.3 Absolute Neuts (auto) 3.5 Absolute Lymphs (auto) 1.74 Nucleated RBC % 0 Sodium 141 Potassium 3.5 Chloride 110 H Carbon Dioxide 28.0 Anion Gap 3 L BUN 7 Creatinine 0.85 Estim Creat Clear Calc 85.85 Est GFR (MDRD) Af Amer 103 Est GFR (MDRD) Non-Af 85 BUN/Creatinine Ratio 8.3 L Glucose 92 Calcium 9.1 Total Bilirubin 0.50 AST 42 H ALT 71 H Alkaline Phosphatase 213 H Total Protein 6.9 Albumin 3.7 Globulin 3.2 Albumin/Globulin Ratio 1.2 Lipase 29 Urine Color Yellow Urine Clarity Clear Urine pH 6.5 Ur Specific Leroy 1.010 Urine Protein Negative Urine Glucose (UA) Normal Urine Ketones Negative Urine Occult Blood 250 H Urine Nitrite Negative Urine Bilirubin Negative Urine Urobilinogen Normal Ur Leukocyte Esterase 500 H Urine RBC 0 SEEN Urine WBC 0-5 SEEN Ur Squamous Epith Cells 0-5 SEEN Ur Renal Epithelial Cell 0-5 SEEN Urine Bacteria 0 SEEN Urine Mucus 0 SEEN Urine Test Negative Radiography Diagnostic Testing: Clinical Impression(s) from Imaging Studies Gallbladder Ultrasound 02/04/23 18:21 IMPRESSION: Cholelithiasis. Possible distal common bile duct obstruction. Recommend HIDA scan and/or MRCP. Electronically Signed: Jaden Bowen MD at 19:34 EDT Reading Location ID and State: [facility] / [place] Tel , Service support , Treatment and Re-Evaluation :: I have personally performed a face to face assessment of the patient and have reviewed the MARLON Note. I performed a substantive portion of the visit including all aspects of the following. My gaitan findings include: History: Patient states she has been having some epigastric pain almost essentially only after eating. She had a couple episodes of this while . She delivered 3 weeks ago and has had no issues since. She has C- section. She has no lower abdominal or pelvic pain whatsoever. She states for the last few days whenever she eats she has epigastric pain. She was seen at [facility] yesterday. They did an ultrasound that showed gallstones and a common bile duct at 10 mm. I do not have blood work. They told her if her pain comes back to return. She was doing fine until she ate at about 2:00 today. She had no pain and then after eating she had pain. She had salad and broccoli cheese soup. Exam: Patient awake alert. She does not look toxic. Lungs are clear. Abdomen is normal bowel sounds soft nondistended. Her looks amazingly well- healed. No tenderness in the lower pelvic or abdominal area. She does have epigastric tenderness. It epigastric seems more than the right or left side. No rebound or guarding. Medical Decision Making: Check blood work. We will redo her ultrasound. Question is does she have a biliary obstruction or she having biliary colic. Discharge Plan Dx/Rx/DC Orders Clinical Impression: Choledocholithiasis with obstruction Disposition Disposition: Acute Care Hospital [facility] Discharge Date/Time: 02/04/23 22:34
[2023-02-04 18:43] LABS: ALB/GLOB Ratio 1.2 RATIO (0.9-2.4); AST(SGOT) 42 U/L (15-37); Alanine Aminotransfer ALT/SGPT 71 U/L (13-56); Albumin, Serum 3.7 g/dL (3.2-5.0); Alkaline Phosphatase 213 U/L (45-117); Anion Gap 3 (5-15); BUN 7 mg/dL (7-18); BUN/Creat Ratio 8.3 RATIO (10-20); Calcium,Total 9.1 mg/dL (8.5-10.1); Chloride 110 mmol/L (98-107); Creatinine, Serum 0.85 mg/dL (0.55-1.02); EST Glomerular Filtration Rate 85 mL/min (>60); Est Glom Filt Rate - Afr Amer 103 mL/min (>60); Estimated Creatinine Clearance 85.85 ml/min; Globulin 3.2 g/dL (2.2-4.2); Glucose 92 mg/dL (74-106); Lipase 29 U/L (13-75); Potassium 3.5 mmol/L (3.5-5.1); Protein, Total 6.9 g/dL (6.4-8.2); Sodium Level 141 mmol/L (136-145)
[2023-02-04 20:01] LABS: Bacteria 0 SEEN /hpf (None Seen); Mucous, Urine 0 SEEN /hpf (<or=2+); Red Blood Cells-Urine 0 SEEN /hpf (0-5)
[2023-02-04 20:11] LABS: Color, Urine Yellow (Yellow); Glucose, Dipstick Normal (Normal); Ketone-Dipstick Negative (Negative); Leukocyte Esterase-Dipstick 500 /ul (Negative); Nitrite-Dipstick Negative (Negative); Occult Blood-Urine 250 /ul (Negative); Protein-Dipstick Negative (Negative); Urine Bilirubin Dipstick Negative (Negative); Urine Clarity Clear (Clear); Urine Urobilinogen Normal (Normal); Urine pH 6.5 (5.0 - 8.0)
[2023-02-04 20:25] LABS: Internal QC Validated? YES +Cl - CLEAR BKGD; Pregnancy, Urine Negative Negative; Renal Epithelial Cells 0-5 SEEN /hpf (0-5); Squamous Epithelial Cells - UA 0-5 SEEN /hpf (5-10); White Blood Cells 0-5 SEEN /hpf (0-5)
[2023-02-04 20:26] VITALS: BP 137/84; PULSE 63; RESP 16; O2SAT 100
--- NOTE | 2023-02-04 21:49 | PCM.HP.STD ---
HPI - General General Date of Admission: 02/04/23 Date of Service: 02/04/23 Chief Complaint: Abdominal pain HPI Narrative ERIC ACOSTA, is a 27 F who presents to [facility] with complaints of acute onset epigastric and right upper quadrant abdominal pain radiating to her back. She states her presentation comes 1 day after presentation to [facility] where she was evaluated for the same symptoms and underwent laboratory testing and ultrasound. The latter showed evidence of a biliary obstruction but she states emergency medicine there told her that she would need an appointment with a press machine operator at [place] to evaluate her biliary tree and then could return to [place] for her gallbladder surgery. She was also advised that if her pain return that she should return for emergency evaluation. Instead of following this latter direction she presented to our facility when her pain returned. Mrs. Acosta is approximately 3 weeks status post delivery of twins?born at 37 weeks. As she looks back on her she recalls having similar pains to those which she describes tonight as early as 32 weeks gestation. She denies any experience of jaundice or itching. She confirms that she is otherwise healthy apart from being prescribed labetalol for hypertension throughout her . Her only prior surgical history is her recent section. ER work-up here is notable for mildly elevated LFTs and alkaline phosphatase. Repeat ultrasound of the right upper quadrant demonstrated a normal?appearing gallbladder with evidence of cholelithiasis. Common bile duct was dilated at 7 mm and a common duct stone was suspected but not confirmed. Radiology recommended follow-up with MRCP. [facility] Medical History (Updated 02/04/23 @ 21:[address] Radha Irizarry MD) Pre-eclampsia Home Medications labetalol 200 mg tablet 200 mg PO BID #60 tabs 01/14/23 [Rx Last Taken Unknown] Allergy/AdvReac Type Severity Reaction Status Date / Time latex Allergy Mild Rash Verified 02/04/23 17:57 Family History (Updated 02/04/23 @ 21:[address] Radha Irizarry MD) Unknown No problems noted. Mother Diabetes Hypertension Aunt Thyroid disorder Grandmother CAD (coronary artery disease) Grandfather CAD (coronary artery disease) Surgical History (Updated 02/04/23 @ 21:[address] Radha Irizarry MD) S/P section Social History household members: significant other housing: house number of children: 2 current occupational status: employed current occupation: works in accounting office history of recent travel: No sexually active: Yes other: lives with fiance Smoking Status: Never smoker alcohol intake: never substance use type: does not use what type of physical activity do you participate in: none seatbelt use: always do you feel safe at home: Yes Vital Signs Vital Signs Vital Signs: 02/04/23 17:57 02/04/23 20:26 Temperature 96.8 F L Temperature Source Temporal Pulse Rate 74 63 Respiratory Rate 18 16 Blood Pressure 128/77 H 137/84 H Blood Pressure Mean 94 101 Pulse Ox 99 100 Oxygen Delivery Method Room Air Room Air Weight Weight: 162 lb 0.636 oz Body Mass Index (BMI) 27.8 Physical Exam Const alert, oriented x3 and no apparent distress Resp normal respiratory effort GI GI Narrative: Nevus present in the right upper quadrant. Patient is nondistended, soft, and mildly tender to palpation in the right upper quadrant as well as the epigastrium. Lo sign is negative. Results Lab / Micro Data 02/04/23 18:10 02/04/23 18:10 Labs: Laboratory Results - last 24 hr 02/04/23 18:10: WBC 5.9, RBC 4.47, Hgb 13.5, Hct 42.1, MCV 94.2, MCH 30.2, MCHC 32.1, RDW Std Deviation 45.8 H, RDW Coeff of Héctor 13.2, Plt Count 291, MPV 10.9, Immature Gran % (Auto) 0.300, Neut % (Auto) 59.3, Lymph % (Auto) 29.3, [place] % (Auto) 8.1, Eos % (Auto) 2.7, Baso % (Auto) 0.3, Absolute Neuts (auto) 3.5, Absolute Lymphs (auto) 1.74, Nucleated RBC % 0, Sodium 141, Potassium 3.5, Chloride 110 H, Carbon Dioxide 28.0, Anion Gap 3 L, BUN 7, Creatinine 0.85, Estim Creat Clear Calc 85.85, Est GFR (MDRD) Af Amer 103, Est GFR (MDRD) Non-Af 85, BUN/Creatinine Ratio 8.3 L, Glucose 92, Calcium 9.1, Total Bilirubin 0.50, AST 42 H, ALT 71 H, Alkaline Phosphatase 213 H, Total Protein 6.9, Albumin 3.7, Globulin 3.2, Albumin/Globulin Ratio 1.2, Lipase 29 02/04/23 19:40: Urine Color Yellow, Urine Clarity Clear, Urine pH 6.5, Ur Specific Diana 1.010, Urine Protein Negative, Urine Glucose (UA) Normal, Urine Ketones Negative, Urine Occult Blood 250 H, Urine Nitrite Negative, Urine Bilirubin Negative, Urine Urobilinogen Normal, Ur Leukocyte Esterase 500 H, Urine RBC 0 SEEN, Urine WBC 0-5 SEEN, Ur Squamous Epith Cells 0-5 SEEN, Ur Renal Epithelial Cell 0-5 SEEN, Urine Bacteria 0 SEEN, Urine Mucus 0 SEEN, Urine Test Negative Radiology Impression Gallbladder Ultrasound 02/04/23 18:21 IMPRESSION: Cholelithiasis. Possible distal common bile duct obstruction. Recommend HIDA scan and/or MRCP. Electronically Signed: Jaden Bowen MD at 19:34 EDT , Assessment & Plan Assessment/Plan (1) Choledocholithiasis with obstruction: PLAN: Patient is 27-year-old female presenting with signs and symptoms of choledocholithiasis without cholecystitis. Surgery is asked to evaluate patient for admission given probable need for cholecystectomy. I held a lengthy conversation with patient and her regarding the management of this condition to include probable ERCP followed by cholecystectomy. I also shared that there may be a role for MRCP, and if negative, proceeding to surgery from that point. The relevant anatomy was outlined along with the pathophysiology. Patient and her expressed an overall understanding of the current situation and state they are prepared to proceed as recommended. PLAN: Plan Neuro: As needed acetaminophen, as needed Dilaudid (patient confirms that she is not presently breast-feeding) Pulm/CV: Incentive spirometer, scheduled metoprolol (in lieu of patient's regular labetalol) FEN/GI: Repeat CMP in a.m., clear liquid diet till midnight then n.p.o., GI consult placed : No current issues Heme/ID: Repeat CBC in a.m., cover empirically with IV Zosyn 3.375 every 8 hours Endo: No present issues Proph: Apply SCDs and ambulate as tolerated Dispo: Admit to inpatient Charges/Coding Visit Charges Inpatient E&M: 45939 Init Hosp L2
[2023-02-04 22:10] VITALS: BP 129/74; PULSE 64; RESP 16; TEMP 36.3; O2SAT 100
[2023-02-04 23:00] VITALS: BP 126/89; PULSE 68; RESP 16; TEMP 36.3; O2SAT 100; BMI 29.2
[2023-02-04] MEDS: 0.9% Normal Saline (1000mL) 1,000 ML 125 ML IV (23:32)
[2023-02-04] MEDS: Piperacil/Tazobactam 3.375 GM in 0.9% Normal Saline (50mL MB+) 50 ML IV (23:32)
[2023-02-05] VITALS (9 sets, daily range): BP systolic 106–141; BP diastolic 71–96; PULSE 58–84; RESP 14–16; TEMP 36.4–37.1; O2SAT 96–100; BMI 29.2
[2023-02-05] MEDS: HYDROmorphone 0.5 MG/0.5 ML SYRINGE IV ×2 (04:45→09:01)
[2023-02-05] MEDS: Piperacil/Tazobactam 3.375 GM in 0.9% Normal Saline (50mL MB+) 50 ML IV ×3 (05:34→21:46)
[2023-02-05 06:24] LABS: Absolute Lymphocyte Count 1.65 X10^3/uL (0.83-4.51); Absolute Neutrophil Count 2.5 X10^3/uL (2.0-7.7); Basophil# 0.02 X10^3/uL; Basophil% 0.4 % (0-1); Eosinophil# 0.19 X10^3/uL; Hematocrit 39.8 % (37-47); Hemoglobin 12.8 g/dL (12.0-15.0); Lymphocyte # 1.65 X10^3/ul (0.83-4.51); Lymphocyte % 34.7 % (19-41); Mean Corp Hgb Conc 32.2 g/dL (32-36); Mean Corpuscular Hgb 30.8 pg (27.0-32.0); Mean Corpuscular Volume 95.7 fL (81-99); Mean Platelet Vol. 11.3 fl (6.2-12.0); Monocyte# 0.43 X10^3/uL; NRBC Flagged by Analyzer 0 % (0-5); Neutrophil # 2.46 X10^3/uL (2.7-7.7); Neutrophil % 51.7 % (47-70); Platelet Count 252 K/mm3 (150-450); Red Blood Count 4.16 M/mm3 (4.2-5.4); White Blood Count 4.8 K/mm3 (4.4-11.0)
--- NOTE | 2023-02-05 06:32 | MRI_ITS ---
STUDY: MR CHOLANGIOPANCREATOGRAPHY (MRCP) REASON FOR EXAM: Female, 27 years old. Right upper quadrant pain TECHNIQUE: Standard MRCP technique was utilized. Three-dimensional reconstruction images performed of the biliary system at an independent workstation and reviewed at time of dictation. COMPARISON: Ultrasound yesterday FINDINGS: MRCP: Gall Bladder: Multiple gallstones. No gallbladder wall thickening. Cystic duct: Normal with no demonstrated fixed filling defect. Intrahepatic ducts: No intrahepatic bile duct dilation. Common hepatic duct: Mild dilation of the common hepatic duct. Common bile duct: Increased diffuse dilation of the common bile duct measuring up to 10 mm (previously measured up to 7 mm). On image 4 series 10, there is a small (3 mm) filling defect in the lower common duct, just above the ampulla. Pancreatic duct: Pancreatic duct is not dilated. MRI abdomen without and with IV contrast: Visualized base of the chest is unremarkable. The visualized portions of the heart are within normal limits. Normal liver. Normal spleen. There is slight thickening of the pancreatic head with minor amount of edema adjacent to the pancreatic head, best seen on image 14 of series 3. No focal fluid collection. Normal bilateral adrenal glands. Normal right kidney. Normal left kidney. Visualized hollow viscus structures are grossly unremarkable. The appendix is not visualized. No retroperitoneal adenopathy. No bone marrow edema. MRI/MRCP Abdomen without Contrast IMPRESSION: 1. Lower common duct choledocholithiasis with increased extrahepatic bile duct dilation. 2. Pancreatic head thickening and peripancreatic edema suggesting acute interstitial edematous pancreatitis. Electronically Signed: Bobby Farnsworth MD ([place]) at 10:31 EDT Reading Location ID and State: [address] [place] , Service support ,
[2023-02-05 07:11] LABS: ALB/GLOB Ratio 1.1 RATIO (0.9-2.4); AST(SGOT) 47 U/L (15-37); Alanine Aminotransfer ALT/SGPT 65 U/L (13-56); Albumin, Serum 3.2 g/dL (3.2-5.0); Alkaline Phosphatase 194 U/L (45-117); Anion Gap 7 (5-15); BUN 8 mg/dL (7-18); BUN/Creat Ratio 9.4 RATIO (10-20); Calcium,Total 8.6 mg/dL (8.5-10.1); Chloride 112 mmol/L (98-107); Creatinine, Serum 0.85 mg/dL (0.55-1.02); EST Glomerular Filtration Rate 85 mL/min (>60); Est Glom Filt Rate - Afr Amer 103 mL/min (>60); Estimated Creatinine Clearance 85.85 ml/min; Globulin 2.9 g/dL (2.2-4.2); Glucose 84 mg/dL (74-106); Magnesium 2.3 mg/dL (1.6-2.6); Potassium 3.1 mmol/L (3.5-5.1); Protein, Total 6.1 g/dL (6.4-8.2); Sodium Level 143 mmol/L (136-145)
[2023-02-05] MEDS: Acetaminophen 500 MG Tablet PO ×2 (08:07→18:52)
--- NOTE | 2023-02-05 08:30 | PCM.PN.SRG ---
Subjective Subjective Patient evaluated resting in bed. Patient was found sitting upright in bed. She notes she has been having pain/discomfort since 0430 this morning in the right upper quadrant and epigastric region. Patient notes she was given pain medication which helped, however the pain medication has worn off. Patient denies nausea, vomiting. Objective Data Objective Data Vital Signs: Vital Signs Temp Pulse Resp BP Pulse Ox O2 Del Method 98.4 F 64 16 124/78 H 98 Room Air 02/05/23 07:33 02/05/23 07:33 02/05/23 07:33 02/05/23 07:33 02/05/23 07:33 02/05/23 07:33 Oxygen Delivery Method Room Air Weight: 170 lb Body Mass Index (BMI) 29.2 Intake & Output: Intake and Output for Last 24 Hours 02/03/23 02/04/23 02/05/23 23:59 23:59 23:59 Intake Total 240 / 240 50 / 50 Balance 240 / 240 50 / 50 Lab / Micro Data 02/05/23 05:24 02/05/23 05:24 Labs: Laboratory Results - last 24 hr 02/04/23 18:10: WBC 5.9, RBC 4.47, Hgb 13.5, Hct 42.1, MCV 94.2, MCH 30.2, MCHC 32.1, RDW Std Deviation 45.8 H, RDW Coeff of Héctor 13.2, Plt Count 291, MPV 10.9, Immature Gran % (Auto) 0.300, Neut % (Auto) 59.3, Lymph % (Auto) 29.3, [place] % (Auto) 8.1, Eos % (Auto) 2.7, Baso % (Auto) 0.3, Absolute Neuts (auto) 3.5, Absolute Lymphs (auto) 1.74, Nucleated RBC % 0, Sodium 141, Potassium 3.5, Chloride 110 H, Carbon Dioxide 28.0, Anion Gap 3 L, BUN 7, Creatinine 0.85, Estim Creat Clear Calc 85.85, Est GFR (MDRD) Af Amer 103, Est GFR (MDRD) Non-Af 85, BUN/Creatinine Ratio 8.3 L, Glucose 92, Calcium 9.1, Total Bilirubin 0.50, AST 42 H, ALT 71 H, Alkaline Phosphatase 213 H, Total Protein 6.9, Albumin 3.7, Globulin 3.2, Albumin/Globulin Ratio 1.2, Lipase 29 02/04/23 19:40: Urine Color Yellow, Urine Clarity Clear, Urine pH 6.5, Ur Specific [place] 1.010, Urine Protein Negative, Urine Glucose (UA) Normal, Urine Ketones Negative, Urine Occult Blood 250 H, Urine Nitrite Negative, Urine Bilirubin Negative, Urine Urobilinogen Normal, Ur Leukocyte Esterase 500 H, Urine RBC 0 SEEN, Urine WBC 0-5 SEEN, Ur Squamous Epith Cells 0-5 SEEN, Ur Renal Epithelial Cell 0-5 SEEN, Urine Bacteria 0 SEEN, Urine Mucus 0 SEEN, Urine Test Negative 02/05/23 05:24: WBC 4.8, RBC 4.16 L, Hgb 12.8, Hct 39.8, MCV 95.7, MCH 30.8, MCHC 32.2, RDW Std Deviation 46.0 H, RDW Coeff of Héctor 13.0, Plt Count 252, MPV 11.3, Immature Gran % (Auto) 0.200, Neut % (Auto) 51.7, Lymph % (Auto) 34.7, [place] % (Auto) 9.0, Eos % (Auto) 4.0, Baso % (Auto) 0.4, Absolute Neuts (auto) 2.5, Absolute Lymphs (auto) 1.65, Nucleated RBC % 0, Sodium 143, Potassium 3.1 L, Chloride 112 H, Carbon Dioxide 24.0, Anion Gap 7, BUN 8, Creatinine 0.85, Estim Creat Clear Calc 85.85, Est GFR (MDRD) Af Amer 103, Est GFR (MDRD) Non-Af 85, BUN/Creatinine Ratio 9.4 L, Glucose 84, Calcium 8.6, Phosphorus 4.0, Magnesium 2.3, Total Bilirubin 0.70, AST 47 H, ALT 65 H, Alkaline Phosphatase 194 H, Total Protein 6.1 L, Albumin 3.2, Globulin 2.9, Albumin/Globulin Ratio 1.1 Radiography Diagnostic Testing: Radiology Impression Gallbladder Ultrasound 02/04/23 18:21 IMPRESSION: Cholelithiasis. Possible distal common bile duct obstruction. Recommend HIDA scan and/or MRCP. Electronically Signed: Jaden Bowen MD at 19:34 EDT , Physical Exam GI GI Narrative: Abdomen- soft, tenderness palpated in the epigastric region and right upper quadrant Assessment & Plan Assessment/Plan (1) Choledocholithiasis with obstruction: QUALIFIERS: Cholecystitis presence: with cholecystitis Cholecystitis acuity: acute Qualified Code(s): K80.43 - Calculus of bile duct with acute cholecystitis with obstruction PLAN: I have evaluated this patient in conjunction with Dr. Pisano. He has also independently evaluated this patient. Recommend evaluation by ABDELRAHMAN Oropeza. Appreciate input and recommendations. Dr. Pisano will plan to perform a laparoscopic cholecystectomy with IOC in the next 2 days. Timing will depend on gastroenterology plan. Labs were reviewed and potassium supplementation was ordered orally this morning We will continue to monitor this patient Charges/Coding Visit Charges Inpatient E&M: 23488 [facility] L1
[2023-02-05] MEDS: 0.9% Saline Lock 10 ML Syringe IV ×2 (09:04→15:33)
--- NOTE | 2023-02-05 10:00 | CASEMGMT ---
RN CM NOTE: RN CM to room to complete initial RN CM assessment. Pt out of room at this time. RN CM to attempt at a later time. Cleve BSN RN CM
[2023-02-05] MEDS: Potassium Chloride Oral Tablet 20 MEQ 60 MEQ PO (10:42)
[2023-02-05] MEDS: 0.9% Normal Saline (1000mL) 1,000 ML 125 ML IV (10:48)
[2023-02-05] MEDS: Lactated Ringers 1,000 ML 15 ML IV (11:40)
--- NOTE | 2023-02-05 12:20 | RAD_ITS ---
EXAM: FL <TEMPLATE> CLINICAL INDICATION: ERCP TECHNIQUE: 9 fluoroscopic images of ERCP were obtained on a C-arm. Fluoroscopic guidance was provided by a physician. No radiologist was present during the procedure. The fluoroscopy time was 1 minute and 17 seconds. COMPARISON: MRCP of the same day. FINDINGS: Fluoroscopy and cannulation were carried out by the referring physician. Small filling defect is seen in the distal common bile duct likely reflecting the same filling defect/seen on the MRCP. Subsequent images demonstrate balloon introduced the distal common bile duct. Examination was not performed for diagnostic purposes and is not diagnostic. RAD/ERCP Biliary/Pancreas IMPRESSION: ERCP as described above. Electronically Signed: Clint Westbrook MD at 13:43 EDT ,
--- NOTE | 2023-02-05 12:31 | CON.PCM.GI_ITS ---
HPI Consult Data Date of Consult: 02/05/23 HPI Narrative Reason for Consultation: Choledocholithiasis HPI Narrative: ERIC MI, is a 27 F who presents to the ER with worsening abdominal pain. Patient presented today due to abdominal pain that she has had intermittently since Friday. She reports that it is epigastric in nature and radiates into her back. She went to [facility] where they did a right upper quadrant ultrasound and blood work and found that she has an obstructing gallstone. They referred her to a GI doctor to have an ERCP performed. They gave her return instructions that included worsening pain. Today, she was eating lunch that consisted of broccoli cheddar soup and her pain came on again after eating, prompting her to come in. She denies any fevers, nausea, or vomiting. Her LFTs showed elevated alkaline phosphatase along with AST and ALT with normal bilirubin. I was consulted for ERCP but I request that she get an MRCP. MRCP showed dilated common bile duct at 7 8 mm with filling defect in the mid to distal common bile duct. [facility] Medical History (Updated 02/05/23 @ 08:48 by Marija BEASLEY, PA-C) Hypertension Pre-eclampsia Home Medications labetalol 200 mg tablet 200 mg PO BID #60 tabs 01/14/23 [Rx Last Taken Unknown] Allergy/AdvReac Type Severity Reaction Status Date / Time latex Allergy Mild Rash Verified 02/04/23 17:57 Family History (Updated 02/04/23 @ 21:[address] Radha Irizarry MD) Unknown No problems noted. Mother Diabetes Hypertension Aunt Thyroid disorder Grandmother CAD (coronary artery disease) Grandfather CAD (coronary artery disease) Surgical History (Updated 02/04/23 @ 21:[address] Radha Irizarry MD) S/P section Social History household members: significant other housing: house number of children: 2 current occupational status: employed current occupation: works in accounting office history of recent travel: No sexually active: Yes other: lives with fiance Smoking Status: Never smoker alcohol intake: never substance use type: does not use what type of physical activity do you participate in: none seatbelt use: always do you feel safe at home: Yes Lab / Micro Data 02/05/23 05:24 02/05/23 05:24 Labs: Laboratory Results - last 24 hr 02/04/23 18:10: WBC 5.9, RBC 4.47, Hgb 13.5, Hct 42.1, MCV 94.2, MCH 30.2, MCHC 32.1, RDW Std Deviation 45.8 H, RDW Coeff of Héctor 13.2, Plt Count 291, MPV 10.9, Immature Gran % (Auto) 0.300, Neut % (Auto) 59.3, Lymph % (Auto) 29.3, [place] % (Auto) 8.1, Eos % (Auto) 2.7, Baso % (Auto) 0.3, Absolute Neuts (auto) 3.5, Absolute Lymphs (auto) 1.74, Nucleated RBC % 0, Sodium 141, Potassium 3.5, Chl oride 110 H, Carbon Dioxide 28.0, Anion Gap 3 L, BUN 7, Creatinine 0.85, Estim Creat Clear Calc 85.85, Est GFR (MDRD) Af Amer 103, Est GFR (MDRD) Non-Af 85, BUN/Creatinine Ratio 8.3 L, Glucose 92, Calcium 9.1, Total Bilirubin 0.50, AST 42 H, ALT 71 H, Alkaline Phosphatase 213 H, Total Protein 6.9, Albumin 3.7, Globulin 3.2, Albumin/Globulin Ratio 1.2, Lipase 29 02/04/23 19:40: Urine Color Yellow, Urine Clarity Clear, Urine pH 6.5, Ur Specific [place] 1.010, Urine Protein Negative, Urine Glucose (UA) Normal, Urine Ketones Negative, Urine Occult Blood 250 H, Urine Nitrite Negative, Urine Bilirubin Negative, Urine Urobilinogen Normal, Ur Leukocyte Esterase 500 H, Urine RBC 0 SEEN, Urine WBC 0-5 SEEN, Ur Squamous Epith Cells 0-5 SEEN, Ur Renal Epithelial Cell 0-5 SEEN, Urine Bacteria 0 SEEN, Urine Mucus 0 SEEN, Urine Test Negative 02/05/23 05:24: WBC 4.8, RBC 4.16 L, Hgb 12.8, Hct 39.8, MCV 95.7, MCH 30.8, MCHC 32.2, RDW Std Deviation 46.0 H, RDW Coeff of Héctor 13.0, Plt Count 252, MPV 11.3, Immature Gran % (Auto) 0.200, Neut % (Auto) 51.7, Lymph % (Auto) 34.7, [place] % (Auto) 9.0, Eos % (Auto) 4.0, Baso % (Auto) 0.4, Absolute Neuts (auto) 2.5, Absolute Lymphs (auto) 1.65, Nucleated RBC % 0, Sodium 143, Potassium 3.1 L , Chloride 112 H, Carbon Dioxide 24.0, Anion Gap 7, BUN 8, Creatinine 0.85, Estim Creat Clear Calc 85.85, Est GFR (MDRD) Af Amer 103, Est GFR (MDRD) Non-Af 85, BUN/Creatinine Ratio 9.4 L, Glucose 84, Calcium 8.6, Phosphorus 4.0, Magnesium 2.3, Total Bilirubin 0.70, AST 47 H, ALT 65 H, Alkaline Phosphatase 194 H, Total Protein 6.1 L, Albumin 3.2, Globulin 2.9, Albumin/Globulin Ratio 1.1 Radiology Impression Gallbladder Ultrasound 02/04/23 18:21 IMPRESSION: Cholelithiasis. Possible distal common bile duct obstruction. Recommend HIDA scan and/or MRCP. Electronically Signed: Jaden Bowen MD at 19:34 EDT , MRCP 02/05/23 06:32 IMPRESSION: 1. Lower common duct choledocholithiasis with increased extrahepatic bile duct dilation. 2. Pancreatic head thickening and peripancreatic edema suggesting acute interstitial edematous pancreatitis. Electronically Signed: Bobby Farnsworth MD (Brooks) at 10:31 EDT ,
--- NOTE | 2023-02-05 13:14 | OP.CCLET_ITS ---
02/05/2023 Emilia Guy Re : ERCP procedure for Adelita Keller Guy This procedure was performed on Sunday, February 05, 2023. My impressions and recommendations are as follows: Impressions : - The entire main bile duct was moderately dilated, with a stone causing an obstruction. - Choledocholithiasis was found. Complete removal was accomplished by biliary sphincterotomy and balloon extraction. - A biliary sphincterotomy was performed. - The biliary tree was swept. - The upper third of the main bile duct was successfully dilated. - One temporary stent was placed into the common bile duct. Recommendations : My findings are described in the full procedure note, which is enclosed. If I can be of further assistance, please feel free to contact me at . Sincerely, Krzysztof Teresa, 02/05/2023 1:13:38 PM This report has been signed electronically.
--- NOTE | 2023-02-05 13:14 | OP.ERCP_ITS ---
Patient Name: Adelita Acosta Procedure Date: 02/05/2023 12:28 PM Date of : 1995 Age: 27 Procedure: ERCP Indications: Bile duct stone(s) Providers: Krzysztof Teresa DO Medicines: General Anesthesia Patient Profile: This is a 27 year old female. This is a 27 year old female. Refer to note in patient chart for documentation of history and physical. Patient has symptoms of acute right upper quadrant abdominal pain. Complications: No immediate complications. Procedure: Pre-Anesthesia Assessment: - Prior to the procedure, a History and Physical was performed, and patient medications and allergies were reviewed. The patient is competent. The risks and benefits of the procedure and the sedation options and risks were discussed with the patient. All questions were answered and informed consent was obtained. Patient identification and proposed procedure were verified by the physician in the pre-procedure area. Mental Status Examination: alert and oriented. Airway Examination: normal oropharyngeal airway and neck mobility. Respiratory Examination: clear to auscultation. CV Examination: normal. Prophylactic Antibiotics: The patient does not require prophylactic antibiotics. Prior Anticoagulants: The patient has taken no anticoagulant or antiplatelet agents. ASA Grade Assessment: II - A patient with mild systemic disease. After reviewing the risks and benefits, the patient was deemed in satisfactory condition to undergo the procedure. The anesthesia plan was to use monitored anesthesia care (MAC). Immediately prior to administration of medications, the patient was re-assessed for adequacy to receive sedatives. The heart rate, respiratory rate, oxygen saturations, blood pressure, adequacy of pulmonary ventilation, and response to care were monitored throughout the procedure. The physical status of the patient was re-assessed after the procedure. After obtaining informed consent, the scope was passed under direct vision. Throughout the procedure, the patient's blood pressure, pulse, and oxygen saturations were monitored continuously. The Duodenoscope was introduced through the mouth, and advanced to the duodenum and used to cannulate the bile duct. The ERCP was accomplished without difficulty. The patient tolerated the procedure well. Scope In: 12:57:01 PM Scope Out: 1:07:15 PM Total Procedure Duration Time 0 hours 10 minutes 14 seconds Findings: The zigzag stitcher film was normal. The esophagus was successfully intubated under direct vision. The scope was advanced to a normal major papilla in the descending duodenum without detailed examination of the pharynx, larynx and associated structures, and upper GI tract. The upper GI tract was grossly normal. The bile duct was deeply cannulated with the short-nosed traction sphincterotome. Contrast was injected. I personally interpreted the bile duct images. There was brisk flow of contrast through the ducts. Image quality was excellent. Contrast extended to the entire biliary tree. Opacification of the entire opacified area and main bile duct was successful. The maximum diameter of the ducts was 8 mm. The lower third of the main bile duct contained two stones, the largest of which was 6 mm in diameter. The main bile duct was moderately dilated, with a stone causing an obstruction. The largest diameter was 9 mm. Placement of a 0.035 inch x 260 cm angled Hydra Jagwire into the biliary tree was attempted. This passed successfully. A 5 mm biliary sphincterotomy was made with a braided traction (standard) sphincterotome using ERBE electrocautery. The sphincterotomy oozed blood. To discover objects, the biliary tree was swept with a 15 mm balloon starting at the bifurcation. Sludge was swept from the duct. All stones were removed. Dilation of the upper third of the main bile duct with 5-7-8.5 Fr catheter dilator was successful. One 10 Fr by 7 cm temporary stent was placed 5 cm into the common bile duct. Bile flowed through the stent. The stent was in good position. Impression: - The entire main bile duct was moderately dilated, with a stone causing an obstruction. - Choledocholithiasis was found. Complete removal was accomplished by biliary sphincterotomy and balloon extraction. - A biliary sphincterotomy was performed. - The biliary tree was swept. - The upper third of the main bile duct was successfully dilated. - One temporary stent was placed into the common bile duct. Procedure Code(s): --- Professional --- 71469, Endoscopic retrograde cholangiopancreatography (ERCP); with placement of endoscopic stent into biliary or pancreatic duct, including pre- and post-dilation and guide wire passage, when performed, including sphincterotomy, when performed, each stent 48111, Endoscopic retrograde cholangiopancreatography (ERCP); with removal of calculi/debris from biliary/pancreatic duct(s) 61428, 26, Endoscopic catheterization of the biliary ductal system, radiological supervision and interpretation CPT copyright 2021 [employer]. All rights reserved. The codes documented in this report are preliminary and upon squeezer operator review may be revised to meet current compliance requirements. Krzysztof Teresa DO 02/05/2023 1:13:38 PM This report has been signed electronically. Number of Addenda: 0 Note Initiated On: 02/05/2023 12:28 PM
--- NOTE | 2023-02-05 15:43 | CASEMGMT ---
RN?CM?ASSESSMENT/readmission note: Prior admission: Admitted 01/13/23 and had a , w/delivery of twins-born @ 37 weeks. Pt discharged home 01/14/23. Current admission: Admitted 02/04/23 w/dx of choledocholithiasis. RN?CM?to room to meet with patient for initial transition planning/care coordination?assessment.?RN?CM?introduced self and role at [facility].? Pt voices understanding and consents to?assessment?at this time.? Pt resting in bed in no distress at this time.? Pt's aunt @ bedside and pt agreeable to her being present during assessment. Pt is A/O at this time and answers all questions appropriately.?? Care providers, pharmacy, and demographics verified/updated at this time. PCP: GALE Oliver Specialists: none at this time. [facility]erred [facility]acy: [facility] Insurance: Self-pay/ER deposit Prescription Benefit: none? Living Will/HPOA:?Pt does not currently have LW/HCPOA LNOK: , Julio Cesar. MotherTheresa Living Arrangements: Lives w/her their twin-boys (just over 3-wks old). Independent. Family supportive and assisting w/caring for the twins while pt is in the hospital. Transportation:?Pt states drives self and states no transportation concerns at this time.? also drives. DME: ? Denies using any DME and denies needs.? HHC/SNF: No hx of either. No needs identified. Pt wishes to return home and states has no concerns with going home at time of discharge.?CM?to follow for any discharge planning/needs.? Pt voices no concerns/needs at this time.? Advised pt to ask for?CM?if any questions/concerns/needs arise.? Voices understanding. PLAN:??Home Cleve BSN?RN?CM
[2023-02-05] MEDS: Metoprolol Tartrate 5 MG/5 ML Vial IV (18:33)
[2023-02-05] MEDS: Lactated Ringers 1,000 ML 200 ML IV (18:50)
[2023-02-06] VITALS (18 sets, daily range): BP systolic 120–137; BP diastolic 78–92; PULSE 53–74; RESP 12–16; TEMP 36.4–37.3; O2SAT 95–100; BMI 29.2
[2023-02-06] MEDS: Metoprolol Tartrate 5 MG/5 ML Vial IV ×4 (00:10→18:37)
[2023-02-06] MEDS: Lactated Ringers 1,000 ML 200 ML IV ×4 (00:10→17:01)
[2023-02-06 04:54] LABS: Absolute Lymphocyte Count 1.51 X10^3/uL (0.83-4.51); Absolute Neutrophil Count 4.8 X10^3/uL (2.0-7.7); Basophil# 0.01 X10^3/uL; Basophil% 0.1 % (0-1); Eosinophil# 0.02 X10^3/uL; Eosinophils% 0.3 % (0-5); Hematocrit 37.9 % (37-47); Hemoglobin 12.3 g/dL (12.0-15.0); Lymphocyte # 1.51 X10^3/ul (0.83-4.51); Lymphocyte % 22.3 % (19-41); Mean Corp Hgb Conc 32.5 g/dL (32-36); Mean Corpuscular Hgb 30.7 pg (27.0-32.0); Mean Corpuscular Volume 94.5 fL (81-99); Mean Platelet Vol. 10.8 fl (6.2-12.0); Monocyte# 0.45 X10^3/uL; Monocyte% 6.6 % (0-10); NRBC Flagged by Analyzer 0 % (0-5); Neutrophil # 4.77 X10^3/uL (2.7-7.7); Neutrophil % 70.6 % (47-70); Platelet Count 261 K/mm3 (150-450); RBC Distribution Width CV 12.9 % (11.6-14.6); RBC Distribution Width SD 44.7 fl (35.1-43.9); Red Blood Count 4.01 M/mm3 (4.2-5.4); White Blood Count 6.8 K/mm3 (4.4-11.0)
[2023-02-06] MEDS: Piperacil/Tazobactam 3.375 GM in 0.9% Normal Saline (50mL MB+) 50 ML IV ×2 (05:30→14:00)
[2023-02-06 05:52] LABS: ALB/GLOB Ratio 1.1 RATIO (0.9-2.4); AST(SGOT) 25 U/L (15-37); Alanine Aminotransfer ALT/SGPT 62 U/L (13-56); Alkaline Phosphatase 167 U/L (45-117); Anion Gap 4 (5-15); BUN 5 mg/dL (7-18); BUN/Creat Ratio 7.4 RATIO (10-20); Calcium,Total 8.5 mg/dL (8.5-10.1); Chloride 112 mmol/L (98-107); Creatinine, Serum 0.68 mg/dL (0.55-1.02); EST Glomerular Filtration Rate 110 mL/min (>60); Est Glom Filt Rate - Afr Amer 133 mL/min (>60); Estimated Creatinine Clearance 107.31 ml/min; Globulin 2.8 g/dL (2.2-4.2); Glucose 97 mg/dL (74-106); Lipase 541 U/L (13-75); Potassium 3.7 mmol/L (3.5-5.1); Protein, Total 5.8 g/dL (6.4-8.2); Sodium Level 142 mmol/L (136-145)
--- NOTE | 2023-02-06 05:55 | EKG12_ITS ---
Test Reason : AM EKG Blood Pressure : / mmHG Vent. Rate : 052 BPM Atrial Rate : 052 BPM P-R Int : 140 ms QRS Dur : 090 ms QT Int : 464 ms P-R-T Axes : 022 052 020 degrees QTc Int : 431 ms Sinus bradycardia with Premature supraventricular complexes Nonspecific ST abnormality Abnormal ECG No previous ECGs available Confirmed by OLIVER FERNÁNDEZ, SHRADDHA ([id number]), editor trade journal ELIZA ORTEGA ([id number]) on 02/20/2023 11:26:28 AM Referred By: Confirmed By:SHRADDHA BOYD MD
[2023-02-06 06:17] LABS: Internal QC Validated? YES +Cl - CLEAR BKGD; Pregnancy, Urine Negative Negative
--- NOTE | 2023-02-06 09:00 | PN.GI_ITS ---
Subjective Subjective Patient underwent ERCP yesterday. She does not have any abdominal pain, nausea, bloating and she is scheduled for cholecystectomy today. Objective Data Objective Data Vital Signs: Vital Signs Temp Pulse Resp BP Pulse Ox O2 Del Method 98.0 F 68 14 132/90 H 98 Room Air 02/06/23 16:55 02/06/23 16:55 02/06/23 16:55 02/06/23 16:55 02/06/23 16:55 02/06/23 16:55 Oxygen Delivery Method Room Air Weight: 170 lb Body Mass Index (BMI) 29.2 Intake & Output: Intake and Output for Last 24 Hours 02/04/23 02/05/23 02/06/23 23:59 23:59 23:59 Intake Total 240 / 240 2206.0 / 2456.0 2665.42 / 2665.42 Balance 240 / 240 2206.0 / 2456.0 2665.42 / 2665.42 Lab / Micro Data 02/06/23 04:37 02/06/23 04:37 Labs: Laboratory Results - last 24 hr 02/06/23 04:37: WBC 6.8, RBC 4.01 L, Hgb 12.3, Hct 37.9, MCV 94.5, MCH 30.7, MCHC 32.5, RDW Std Deviation 44.7 H, RDW Coeff of Héctor 12.9, Plt Count 261, MPV 10.8, Immature Gran % (Auto) 0.100, Neut % (Auto) 70.6 H, Lymph % (Auto) 22.3, [place] % (Auto) 6.6, Eos % (Auto) 0.3, Baso % (Auto) 0.1, Absolute Neuts (auto) 4.8, Absolute Lymphs (auto) 1.51, Nucleated RBC % 0, Sodium 142, Potassium 3.7, Chloride 112 H, Carbon Dioxide 26.0, Anion Gap 4 L, BUN 5 L, Creatinine 0.68, Estim Creat Clear Calc 107.31, Est GFR (MDRD) Af Amer 133, Est GFR (MDRD) Non-Af 110, BUN/Creatinine Ratio 7.4 L, Glucose 97, Calcium 8.5, Total Bilirubin 0.50, AST 25, ALT 62 H, Alkaline Phosphatase 167 H, Total Protein 5.8 L, Albumin 3.0 L , Globulin 2.8, Albumin/Globulin Ratio 1.1, Lipase 541 H 02/06/23 06:00: Urine Test Negative Radiography Diagnostic Testing: Radiology Impression Cholangiogram 02/06/23 13:20 IMPRESSION: Stent is seen in the common bile duct. No intraluminal filling defect is seen. Electronically Signed: Romeo Isbell MD at 15:11 EDT , Physical Exam Const alert, oriented x3 and no apparent distress Resp normal respiratory effort GI GI Narrative: Nevus present in the right upper quadrant. Patient is nondistended, soft, and mildly tender to palpation in the right upper quadrant as well as the epi gastrium. Lo sign is negative. Assessment & Plan Assessment/Plan (1) Choledocholithiasis with obstruction: QUALIFIERS: Cholecystitis presence: with cholecystitis Cholecystitis acuity: acute Qualified Code(s): K80.43 - Calculus of bile duct with acute cholecystitis with obstruction PLAN: Choledocholithiasis status post removal with ERCP via balloon sweep and stent placement. She will undergo cholecystectomy today. She will need to follow-up as an outpatient for stent removal. Discussed the findings in detail with the patient and the patient's mother at the bedside. Charges/Coding Visit Charges Inpatient E&M: 55118 Subs Hosp L3
--- NOTE | 2023-02-06 13:20 | GALL_PTH ---
PATIENT: ERIC MI LOC: PCU U#:[id number] AGE/SX: 27/F ROOM: [facility] RE02/04/[address]: Dr. Reggie Pisano MD : 1995 BED: 1 DIS: 02/07/2023 SPEC #: [id number] RECD: 02/06/23 15:52 STATUS: REBECCA MARES #: [id number] DAYDAY: 02/06/23 13:[address]: Reggie Psiano DEPT: SURGICAL PATHOLOGY RECD BY: Lyubov Greer ENTERED: 02/07/23 07:35 SP TYPE: LORIE BOONE DR: DO Emilia Gordon PR Tissues: Gallbladder, NOS Procedures: Surgery Specimen Level III HEADER OPERATION: Laparoscopic cholecystectomy with IOC PRE-OP DIAGNOSIS: Choledocholithiasis with obstruction TISSUE SUBMITTED: Gallbladder MICROSCOPIC DIAGNOSIS Gallbladder, cholecystectomy: Cholesterolosis, chronic cholecystitis and cholelithiasis. AM:maria r 02/10/2023 MICROSCOPIC DESCRIPTION Slides are reviewed. GROSS DESCRIPTION Received is one container labeled with the patient's name and designated gallbladder. The specimen consists of a gallbladder measuring 11.0 cm in length and up to 3.5 cm in diameter. The external surface is pink-voss, smooth and glistening for the most part. Focally it is granular, hemorrhagic and contains cautery artifact. The gallbladder contains yellow mucoid bile and multiple yellow, mulberry stones measuring in aggregate 2.5 x 1.5 x 0.5 cm and 0.1 to 0.5 cm in greatest dimension. The mucosa also shows several yellowish streaks consistent with cholesterolosis. The mucosa is bile-stained and without any mass lesions. The gallbladder wall measures up to 0.2 cm in thickness. Mounter Flutes And Piccolos sections from the gallbladder and the cystic duct are submitted in one cassette. / SJ:maria r 02/07/2023 TC:3 CPT: 12623
--- NOTE | 2023-02-06 13:20 | RAD_ITS ---
STUDY: INTRAOPERATIVE CHOLANGIOGRAM. REASON FOR EXAM: Female, 27 years old. LAP SUE WITH IOC FLUOROSCOPY TIME (if supplied): ( 44 seconds ) minutes/seconds. 10.56 mGy TECHNIQUE: An intraoperative chondroma was performed by the surgeon. Imaging was provided. COMPARISON: None. FINDINGS: A stent is seen in the common bile duct. Contrast was injected. No intraluminal filling defect is seen. RAD/Cholangiogram/ O R,Initial IMPRESSION: Stent is seen in the common bile duct. No intraluminal filling defect is seen. Electronically Signed: Romeo Isbell MD at 15:11 EDT ,
--- NOTE | 2023-02-06 15:09 | OP.PCM_ITS ---
Report of Operation Date of Procedure: 02/06/23 Pre-Operative Diagnosis: Choledocholithiasis Post-Operative Diagnosis: Choledocholithiasis with cholecystitis Surgery/Procedure Performed:: Laparoscopic cholecystectomy with intraoperative cholangiogram Description of Surgical Findings:: ? Normal-appearing gallbladder and the fundic region of the gallbladder and body but with evidence of acute inflammation approaching the infundibulum ? Normal?appearing biliary anatomy with common bile duct stent in place and free flow of contrast into the duodenum as well as retrograde into the common hepatic proper hepatic system Surgeon: Reggie Pisano boiler room helper: Massimo Murguia Type of Anesthesia: General/Supplemental Anesthesiologist: Howard Lemos Specimen's removed: Gallbladder Estimated Blood Loss (mL): 25 Description of Procedure: After proper identification in the preoperative holding area the patient was brought to the operating room where she was positioned supine on the operating room table. Preoperatively SCDs were connected and antibiotics were administered. General anesthesia was then induced. Patient's abdomen was prepped and draped in usual sterile fashion. A formal timeout was conducted to confirm both patient and the procedure. Procedure was begun with a supraumbilical incision which was extended deeply down to the level of the fascia. The fascia was elevated and incised, as well as the peritoneum. A finger sweep was performed to ensure there were no underlying adhesions and a 12 mm balloon trocar was inserted. Pneumoperitoneum was established at 15 mmHg. 3 additional trocars were placed in the epigastrium and in the right upper quadrant (3 x 5 mm) under laparoscopic visualization. Inspection of the peritoneum revealed no inadvertent injury to the viscera below. The gallbladder was visualized with minimal inflammation in the vicinity of the fundus but progressively more inflammation approaching the infundibulum. The gallbladder fundus was then grasped and elevated cephalad. Then, using careful dissection some of these adhesions were bluntly swept away and the peritoneum was opened and the structures of the hepatocystic triangle were delineated. Once the critical view of safety was obtained, the cystic duct was singly clipped and partially divided with a ductotomy. The proximal duct was milked of stones and debris (which were grasped and removed from the peritoneum. Using an Vora Nelson clamp, a cholangiocatheter was fed into the proximal segment of the cystic duct and clamped into place. Under fluoroscopy a cholangiogram was then obtained showing a standard length cystic duct flowing into a stented common bile duct with unobstructed antegrade flow of contrast into the duodenum. There was also retrograde flow through the common hepatic duct into the right and left hepatic ducts. Satisfied with this result, the cholangiocatheter was withdrawn and the proximal cystic duct was sealed with clips and the cystic duct was completely transected. The same process was used for the cystic artery. The gallbladder was then removed from the gallbladder fossa with the use of electrocautery. Selective electrocautery was used to obtain hemostasis in the gallbladder fossa. The ga llbladder was placed in an Endo Catch bag and removed from the peritoneum. Morison's pouch was irrigated and the effluent was suctioned free of the peritoneum. Hemostasis was again confirmed. Pneumoperitoneum was evacuated and the fascia of the 12 mm port sites was closed with #1Vicryl in a [id number] fashion. A total of 30 mL of anesthetic was injected at the port sites for postoperative pain control. The skin of each port site was then closed in subcuticular fashion using 4-0 Monocryl. Steri-Strips and bandages were applied as dressings. Patient tolerated the procedure well without any apparent complications. On emergence from their anesthetic the patient was taken to PACU for ongoing recovery. Complications None Admit VTE Documentation VTE Mechan Device Prophylaxis: SCD's Procedures Digestive 40xxx-49xxx: [id number] Laparo cholecystectomy/graph
[2023-02-06] MEDS: Bupivacaine Mpf 0.5% 30 ML VIAL (15:10)
[2023-02-06] MEDS: 0.9% Saline Lock 10 ML Syringe IV (18:38)
[2023-02-06] MEDS: Acetaminophen 500 MG Tablet PO (20:33)
[2023-02-06] MEDS: Lactated Ringers 1,000 ML 100 ML IV (22:42)
[2023-02-07 03:21] VITALS: BP 134/92; PULSE 61; RESP 15; TEMP 36.9; O2SAT 95
[2023-02-07] MEDS: oxyCODONE 5 MG Tablet PO ×2 (03:25→10:28)
[2023-02-07] MEDS: Acetaminophen 500 MG Tablet PO ×2 (04:23→10:29)
[2023-02-07] MEDS: Lactated Ringers 1,000 ML 100 ML IV (06:53)
--- NOTE | 2023-02-07 08:05 | DCINST_ITS ---
Discharge Instructions Diet Discharge Diet: No restrictions Activity Discharge Activity: May Not Drive (No driving while using narcotic pain medication) and May Shower (Postoperative day 1) May shower in (days): 1 Ice area for (Minutes): 20 Lifting Restrictions: No lifting greater than 15 pounds for 2 weeks after surgery Dressing / Incision Call your doctor if your incision/area has: Continuous Slow Oozing, Increased Pain/ Swelling, Increased Redness, Foul Smelling Discharge and Swelling at the incision site Call your doctor if you observe: Fever of 101 or Higher Remove Dressing in: 1 day (Please leave Steri-Strips intact until they fall off spontaneously or are taken off at your follow-up visit) Cleanse incision/area with: Soap & Water Follow Up Care Please Follow Up With: Reggie Pisano MD When: 7-10days postop Test Results: Test results from this visit will be discussed in further detail at your follow- up appointment, if applicable. Discharge Plan Admission Admit Date/Time: 02/04/23 21:46 Primary Reason for Your Visit: Common bile duct stone Attending Provider: Reggie Pisano Primary Care Provider: Emilia Guy Consulting Providers: Krzysztof Teresa Discharge Orders/Prescriptions Prescriptions: New oxycodone 5 mg Tablet 5 mg PO Q6H PRN PRN (Reason: Pain Score 6-10) 3 Days Qty: 14 0RF Continued labetalol 200 mg tablet 200 mg PO BID Qty: 60 1RF Referrals / Follow Up: Emilia Guy PA [Primary Care Provider] - Within 2 Weeks Disposition Disposition (needs filled in before D/C Order can be placed): Home, Self Care
--- NOTE | 2023-02-07 10:14 | DS.PCM_ITS ---
Providers Date of Admission: 02/04/23 Primary Care Physician: GALE Oliver Consultations 02/04/23 21:45 Consult: Gastroenterology Routine Consulting Provider: Krzysztof Teresa Reason for Consult: Choledocholithiasis EMERGENT Consult: No MD Notified: Yes Date Notified: 02/04/23 Time Notified: 21:48 Method of Notification: ED Physician Initiated Reason For Visit: CHOLEDOCHOLITHIASIS Diagnosis Discharge Diagnosis (1) Choledocholithiasis with obstruction: Status: Acute Code(s): K80.51 - Calculus of bile duct without cholangitis or cholecystitis with obstruction Qualifiers: Cholecystitis acuity: acute Cholecystitis presence: with cholecystitis Qualified Code(s): K80.43 - Calculus of bile duct with acute cholecystitis with obstruction Plan: Patient is 27-year-old female presenting with signs and symptoms of lenora docholithiasis without cholecystitis. Surgery is asked to evaluate patient for admission given probable need for cholecystectomy. I held a lengthy conversation with patient and her regarding the management of this condition to include probable ERCP followed by cholecystectomy. I also shared that there may be a role for MRCP, and if negative, proceeding to surgery from that point. The relevant anatomy was outlined along with the pathophysiology. Patient and her expressed an overall understanding of the current situation and state they are prepared to proceed as recommended. Plan Neuro: As needed acetaminophen, as needed Dilaudid (patient confirms that she is not presently breast-feeding) Pulm/CV: Incentive spirometer, scheduled metoprolol (in lieu of patient's regular labetalol) FEN/GI: Repeat CMP in a.m., clear liquid diet till midnight then n.p.o., GI consult placed : No current issues Heme/ID: Repeat CBC in a.m., cover empirically with IV Zosyn 3.375 every 8 hours Endo: No present issues Proph: Apply SCDs and ambulate as tolerated Dispo: Admit to inpatient Medications at Discharge Home Medications labetalol 200 mg tablet 200 mg PO BID blood pressure #60 tabs 01/14/23 oxycodone 5 mg tablet 5 mg PO Q6H PRN PRN Pain Score 6-10 3 days #14 tabs 02/07/23 Hospital Course Operations cholecystecomy (02/06/2023) and ERCP (02/05/2023) Summary of Care Provided Hospital Course: Patient is a 27-year-old female who was admitted on 02/04/2023 via the emergency department after presentation for acute onset abdominal discomfort which was recurrent after presenting to an outside hospital with similar symptoms and being diagnosed with probable choledocholithiasis. This diagnosis was further suspected with a repeat ultrasound and laboratory testing. Therefore, patient was admitted to general surgery and gastroenterology was consulted. A magnetic resonance cholangiopancreatography was performed on 02/05/2023 to attempt to confirm a diagnosis of choledocholithiasis. Once this was confirmed GI took the patient for ERCP with stent placement the same day. Patient was returned to the inpatient [facility]enz and underwent cholecystectomy with intraoperative cholangiography the following day. Today, postoperative day 1, patient is doing well with oral pain medication and has tolerated advancement to regular diet. She request discharge home. Given her clinical stability and improvement, this discharge request was granted. She was reviewed postoperative wound care instructions and reminded that she will require a outpatient follow-up to review her wound healing and pathology. Physical Exam Const alert, oriented x3 and no apparent distress Resp normal respiratory effort GI GI Narrative: Minimally distended, soft, appropriately tender to palpation about bandages which are clean dry and intact Weight / BMI Weight Weight: 170 lb Body Mass Index (BMI) 29.2 ABG / Lab / Microbiology Data 02/06/23 04:37 02/06/23 04:37 Radiography Diagnostic Testing: Radiology Impression Cholangiogram 02/06/23 13:20 IMPRESSION: Stent is seen in the common bile duct. No intraluminal filling defect is seen. Electronically Signed: Romeo Isbell MD at 15:11 EDT , D/C Instructions Discharge Diet: No restrictions May shower in (days): 1 Ice area for (Minutes): 20 Call your doctor if your incision/area has: Continuous Slow Oozing, Increased Pain/ Swelling, Increased Redness, Foul Smelling Discharge and Swelling at the incision site Call your doctor if you observe: Fever of 101 or Higher Cleanse incision/area with: Soap & Water Please Follow Up With: Reggie Pisano MD When: 7-10days postop Meaningful Use Info Meaningful Use Diagnoses (Choose all that apply): None applicable Discharge Plan Admission Admit Date/Time: 02/04/23 21:46 Primary Reason for Your Visit: Common bile duct stone Attending Provider: Reggie Pisano Primary Care Provider: Emilia Guy Consulting Providers: Krzysztof Teresa Discharge Orders/Prescriptions Prescriptions: New oxycodone 5 mg Tablet 5 mg PO Q6H PRN PRN (Reason: Pain Score 6-10) 3 Days Qty: 14 0RF Continued labetalol 200 mg tablet 200 mg PO BID Qty: 60 1RF Referrals / Follow Up: Emliia Guy, PA [Primary Care Provider] - Within 2 Weeks Disposition Disposition (needs filled in before D/C Order can be placed): Home, Self Care
[2023-02-07 10:24] VITALS: BP 142/81; PULSE 78; RESP 18; TEMP 37; O2SAT 98
[2023-02-07] MEDS: Labetalol 200 MG Tablet PO (10:30)
--- NOTE | 2023-02-07 14:42 | PHA.DC_ITS ---
Pharmacy [facility] has performed discharge medication reconciliation and counseling for this patient. The patient was counseled on the following discharge medications and changes in medications for homegoing were reviewed. 1. OXYCODONE The Reason for Use, instructions for use, and potential side effects were reviewed for all new medications. The patient's questions regarding all of their medications were answered. The patient was able to verbally demonstrate an understanding of their discharge medications. The patient's discharge medication list was reviewed for discrepancies and discrepancies were resolved. Medications at Discharge Home Medications labetalol 200 mg tablet 200 mg PO BID blood pressure #60 tabs 01/14/23 oxycodone 5 mg tablet 5 mg PO Q6H PRN PRN Pain Score 6-10 3 days #14 tabs 02/07/23
== END 2023-02-07 14:16 | disposition home or self-care (01) | DRG 769 ==
LOC: ED 20:59 → PCU 22:24
PROVIDERS: Anesthesiology; Internal Medicine Gastroenterology; Physician Assistant; Admitting Provider Surgery; Emergency Provider Emergency Medicine; PCP Physician Assistant; Visit Provider Surgery
PROC: 0FC98ZZ Extirpation of Matter from Common Bile Duct, Via Natural or Artificial Opening Endoscopic (ICD-10-PCS; CPT 43260; principal; 2023-02-05 12:25)
PROC: 0FT44ZZ Resection of Gallbladder, Percutaneous Endoscopic Approach (ICD-10-PCS; CPT 47610; principal; 2023-02-06 13:00)
DX: O26.63 Liver and biliary tract disorders in the puerperium (principal); K80.43 Calculus of bile duct with acute cholecystitis with obstruction; O16.5 Unspecified maternal hypertension, complicating the puerperium
CPT/HCPCS: 36415; 74181; 74300; 74330; 76000; 76705; 80053; 81001; 81025; 83690; 83735; 84100; 85025; 88304; 93005; 94668; 99252; 99284; J7030; J7120; A4216; G0463; J2405